=== PATIENT | male | born 1930 | race Caucasian/White ===

== ENCOUNTER 2017-08-10 18:13 | Emergency (ER) | payer MEDICARE, OTHER ==
[2017-08-10 18:21] VITALS: BP 197/100
--- NOTE | 2017-08-10 18:57 | EDM.PDOC ---
ED HPI GENERAL MEDICAL PROBLEM - General Chief Complaint: Skin Complaint Stated Complaint: LOWER LEG WOUND Time Seen by Provider: 08/10/17 18:30 Source of Information: Reports: Patient History Limitations: Reports: No Limitations - History of Present Illness INITIAL COMMENTS - FREE TEXT/NARRATIVE: 87 YO WM presents to ER with right lower extremity cellulitis x 3 days. Pt reports his pant leg was rubbing on his lower extremity causing a break in the skin and over the last few days he's noticed surrounding redness. Pt with bilateral lower extremity swelling that is chronic which he takes "water pill". Pt denies any fever/chills, denies malaise, denies pain or nausea/vomiting. Onset Date: 08/07/17 Duration: Day(s): (3) Location: Reports: Lower Extremity, Right Quality: Reports: Ache Severity: Mild Improves with: Reports: None Worsens with: Reports: None Associated Symptoms: Reports: No Other Symptoms - Related Data Allergies Allergy/AdvReac Type Severity Reaction Status Date / Time No Known Drug Allergies Allergy Unknown none Verified 08/10/17 18:17 Home Meds: Home Meds ALPRAZolam [Alprazolam] 1 tab PO DAILY PRN 01/20/16 [History] Albuterol [Ventolin HFA] 1 - 2 inhalation INH Q6HR PRN 01/20/16 [History] Albuterol/Ipratropium [DuoNeb 3.0-0.5 MG/3 ML] 1 vial INH QID PRN 01/20/16 [ History] Arformoterol Tartrate [Brovana] 1 vial INH BID 01/20/16 [History] Aspirin [Halfprin] 1 tab PO DAILY 01/20/16 [History] Benazepril HCl [Lotensin] 1 tab PO DAILY 01/20/16 [History] Budesonide [Pulmicort] 0.5 mg NEB BIDRT 01/20/16 [History] Cyclobenzaprine [Flexeril] 1 tab PO TID PRN 01/20/16 [History] Fluticasone Propionate 1 spray MICHELE BID 01/20/16 [History] Furosemide 1 tab PO DAILY 01/20/16 [History] Gabapentin 2 cap PO TID 01/20/16 [History] Ibuprofen 1 tab PO Q4HR PRN 01/20/16 [History] Ibuprofen/Diphenhydramine Cit [Advil Pm Caplet] 1 tab PO BEDTIME 01/20/16 [ History] L.acidoph,Paracasei, B.lactis [Probiotic] 1 cap PO BID 01/20/16 [History] Omeprazole 1 - 2 tab PO DAILY 01/20/16 [History] Potassium Chloride 1 tab PO DAILY 01/20/16 [History] Primidone 2 tab PO BID 01/20/16 [History] Propranolol HCl [Propranolol HCl ER] 1 cap PO DAILY 01/20/16 [History] Saw [place] Fruit [Saw [place]] 2 cap PO DAILY 01/20/16 [History] Spironolactone [Aldactone] 25 mg PO BID 01/20/16 [History] Tamsulosin [Flomax] 1 cap PO DAILY 01/20/16 [History] Tiotropium [Spiriva HandiHaler] 18 mcg INH DAILY 01/20/16 [History] Vitamin A Palmitate [Vitamin A] 1 cap PO DAILY 01/20/16 [History] Nitroglycerin [Nitrostat] 0.4 mg SL ASDIRECTED PRN #30 tab.subl 01/21/16 [Rx] Nystatin [IJD: Nystatin Cream] 1 applic TOP TID #1 tube 01/21/16 [Rx] Cephalexin [Keflex] 500 mg PO Q6HR #40 capsule 08/10/17 [Rx] Sulfamethoxazole/Trimethoprim [Septra DS] 1 each PO BID #20 tab 08/10/17 [Rx] Past Medical History HEENT History: Reports: Hard of Hearing, Impaired Vision Cardiovascular History: Reports: High Cholesterol, Hypertension, SOB on Exertion Respiratory History: Reports: COPD, SOB Gastrointestinal History: Reports: Cholelithiasis Genitourinary History: Reports: Prostate Disorder, Urinary Incontinence Musculoskeletal History: Reports: Arthritis Hematologic History: Reports: Blood Transfusion(s) - Infectious Disease History Infectious Disease History: Reports: Measles - Past Surgical History Respiratory Surgical History: Reports: None GI Surgical History: Reports: Appendectomy, Cholecystectomy Social & Family History - Family History Family Medical History: Noncontributory - Tobacco Use Smoking Status *Q: Unknown Ever Smoked - Caffeine Use Caffeine Use: Reports: Coffee, Soda - Alcohol Use Days Per Week of Alcohol Use: 1 Number of Drinks Per Day: 1 Total Drinks Per Week: 1 - Recreational Drug Use Recreational Drug Use: No ED ROS GENERAL - Review of Systems Review Of Systems: See Below Constitutional: Reports: No Symptoms HEENT: Reports: No Symptoms Respiratory: Reports: No Symptoms Cardiovascular: Reports: No Symptoms Endocrine: Reports: No Symptoms. Denies: High Glucose GI/Abdominal: Reports: No Symptoms : Reports: No Symptoms Musculoskeletal: Reports: No Symptoms Skin: Reports: Erythema, Wound (right anterior tibia ) Neurological: Reports: No Symptoms Psychiatric: Reports: No Symptoms Hematologic/Lymphatic: Reports: No Symptoms Immunologic: Reports: No Symptoms ED EXAM, SKIN/RASH Exam: See Below Exam Limited By: No Limitations General Appearance: Alert, WD/WN, No Apparent Distress Head: Atraumatic, Normocephalic Neck: Normal Inspection, Supple, Non-Tender, Full Range of Motion Respiratory/Chest: No Respiratory Distress, Lungs Clear, Normal Breath Sounds, No Accessory Muscle Use, Chest Non-Tender Cardiovascular: Normal Peripheral Pulses, Regular Rate, Rhythm, No Edema, No Gallop, No JVD, No Murmur, No Rub GI/Abdominal: Normal Bowel Sounds, Soft, Non-Tender, No Organomegaly, No Distention, No Abnormal Bruit, No Mass Back Exam: Normal Inspection, Full Range of Motion, NT Extremities: Pedal Edema, Increased Warmth, Redness (8x9cm area of erythema on anterior tibia) Neurological: Alert, Oriented, CN II-XII Intact, Normal Cognition, Normal Gait, Normal Reflexes, No Motor/Sensory Deficits Course - Vital Signs Last Recorded V/S: Last Vital Signs Temp 36.1 C 08/10/17 18:20 Pulse 69 08/10/17 18:20 Resp 22 H 08/10/17 18:20 BP 197/100 H 08/10/17 18:20 Pulse Ox 91 L 08/10/17 18:20 Departure - Departure Time of Disposition: 19:01 Disposition: Home, Self-Care 01 Clinical Impression: Cellulitis Qualifiers: Site of cellulitis of extremity: lower extremity Laterality: right - Discharge Information Prescriptions: Cephalexin [Keflex] 500 mg PO Q6HR #40 capsule Sulfamethoxazole/Trimethoprim [Septra DS] 1 each PO BID #20 tab Instructions: Cellulitis, Adult Referrals: Ronny Garcia NP [Primary Care Provider] - Additional Instructions: 1. discharge home 2. septra/keflex for cellulitis x 10 days 3. recheck wound in 2 days in clinic 4. return to ER for worsening symptoms - Assessment/Plan Assessment:: 1. early right lower extremity cellulitis Plan: 1. discharge home 2. septra/keflex for cellulitis x 10 days 3. recheck wound in 2 days in clinic 4. return to ER for worsening symptoms
[2017-08-10] MEDS ORDERED: Cephalexin 250 MG Cap ONE (19:14)
[2017-08-10] MEDS: Sulfamethoxazole/Trimethoprim 800-160 MG Tab PO SCH ×2 (19:24→19:37)
[2017-08-10] MEDS ORDERED: Cephalexin 250 MG Cap PO SCH (23:00)
== END 2017-08-10 19:30 | disposition home or self-care (01) ==
LOC: KA.ED 18:13
DX: L03.115 Cellulitis of right lower limb (principal); E78.00 Pure hypercholesterolemia, unspecified; I10 Essential (primary) hypertension; J44.9 Chronic obstructive pulmonary disease, unspecified; Z79.82 Long term (current) use of aspirin; Z79.899 Other long term (current) drug therapy
CPT/HCPCS: 99283; 99284; A9270

== ENCOUNTER 2017-10-17 16:50 | Inpatient (IN) | payer MEDICARE, OTHER ==
[2017-10-17] MEDS ORDERED: Acetaminophen 325 MG Tab PO PRN (17:10)
[2017-10-17] MEDS ORDERED: Cyclobenzaprine 5 MG Tab PO PRN (17:20)
[2017-10-17] MEDS ORDERED: Albuterol 8 GM Inhaler INH PRN (17:20)
[2017-10-17] MEDS ORDERED: Albuterol/Ipratropium 3.0-0.5 MG/3 ML Neb Soln INH PRN (17:20)
[2017-10-17] MEDS ORDERED: ALPRAZolam 0.25 MG Tab PO PRN (17:51)
[2017-10-17] MEDS ORDERED: Sodium Chloride 0.9% 250 ML ONE (17:51)
[2017-10-17] MEDS ORDERED: Ibuprofen 200 MG Tab PO PRN (17:52)
[2017-10-17] MEDS: Furosemide 40 MG/4 ML VIAL IVPUSH SCH (18:07)
[2017-10-17] MEDS: Metoclopramide 10 MG/2 ML SDV IVPUSH SCH ×2 (18:09→23:21)
[2017-10-17] MEDS: Ciprofloxacin in D5W 400 MG in Premix Bag 1 BAG IV SCH ×2 (18:12)
[2017-10-17] MEDS: Polyethylene Glycol 3350 Powder 17 GM Packet PO SCH (18:27)
[2017-10-17] MEDS ORDERED: Ibuprofen 200 MG Tab PO SCH (21:00)
[2017-10-17] MEDS: Arformoterol 15 MCG/2 ML Neb Soln INH SCH (21:03)
[2017-10-17] MEDS: B.Bifidum/B.Longum/L.Acidophilus/L.Rhamnosus (Probiotic) Cap PO SCH (21:10)
[2017-10-17] MEDS: Gabapentin 100 MG Cap PO SCH (21:10)
[2017-10-17] MEDS: Spironolactone 25 MG Tab PO SCH (21:11)
[2017-10-17] MEDS: Primidone 50 MG Tab PO SCH (21:11)
[2017-10-17] MEDS: Fluticasone Propionate Nasal Spray 16 GM Bottle NAS SCH (21:14)
[2017-10-17] MEDS: Budesonide 0.5 MG/2 ML Neb Susp NEB SCH (21:16)
[2017-10-18] MEDS: Furosemide 40 MG/4 ML VIAL IVPUSH SCH ×2 (01:57→16:03)
[2017-10-18] MEDS: Metoclopramide 10 MG/2 ML SDV IVPUSH SCH ×3 (05:45→17:35)
[2017-10-18] MEDS ORDERED: Furosemide 40 MG/4 ML VIAL IVPUSH SCH (06:00)
[2017-10-18] MEDS: Ciprofloxacin in D5W 400 MG in Premix Bag 1 BAG IV SCH ×4 (06:08→17:40)
[2017-10-18] MEDS: Omeprazole 20 MG Cap.CR PO SCH (06:09)
[2017-10-18] MEDS ORDERED: Magnesium Hydroxide 400 MG/5 ML Susp 30 ML Cup PO ONE (07:00)
[2017-10-18] MEDS: Arformoterol 15 MCG/2 ML Neb Soln INH SCH ×2 (07:15→21:10)
[2017-10-18] MEDS: Budesonide 0.5 MG/2 ML Neb Susp NEB SCH ×2 (07:49→21:25)
[2017-10-18] MEDS ORDERED: EPINEPHrine 1:10,000 1 MG/10 ML Syringe IVPUSH PRN (08:30)
[2017-10-18] MEDS ORDERED: Nitroglycerin 0.4 MG Tab.SL SL PRN (08:30)
[2017-10-18] MEDS ORDERED: Lidocaine 2% 100 MG/5 ML Syringe IVPUSH PRN (08:30)
[2017-10-18] MEDS ORDERED: Atropine 0.1 MG/ML 10 ML Syringe IVPUSH PRN (08:30)
[2017-10-18] MEDS ORDERED: Tiotropium Inhaler 18 MCG Inhalation Powder Cap Kit of 5 INH SCH (09:00)
[2017-10-18] MEDS ORDERED: Potassium Chloride 10 MEQ Tab.ER PO SCH (09:00)
[2017-10-18] MEDS ORDERED: VITAMIN A PALMITATE PO SCH (09:00)
[2017-10-18] MEDS ORDERED: SAW PALMETTO FRUIT PO SCH (09:00)
[2017-10-18] MEDS: Spironolactone 25 MG Tab PO SCH ×2 (10:17→21:13)
[2017-10-18] MEDS: Benazepril 10 MG Tab PO SCH (10:17)
[2017-10-18] MEDS: Tamsulosin 0.4 MG Cap.ER PO SCH (10:17)
[2017-10-18] MEDS: Gabapentin 100 MG Cap PO SCH ×3 (10:19→21:12)
[2017-10-18] MEDS: Propranolol 80 MG Cap.ER PO SCH (10:19)
[2017-10-18] MEDS: B.Bifidum/B.Longum/L.Acidophilus/L.Rhamnosus (Probiotic) Cap PO SCH ×2 (10:19→21:12)
[2017-10-18] MEDS: Polyethylene Glycol 3350 Powder 17 GM Packet PO SCH (10:20)
[2017-10-18] MEDS: Aspirin 81 MG Tab.EC PO SCH (10:20)
[2017-10-18] MEDS: Fluticasone Propionate Nasal Spray 16 GM Bottle NAS SCH ×2 (10:24→21:14)
--- NOTE | 2017-10-18 11:14 | PCM.PN ---
- General Info Date of Service: 10/18/17 Functional Status: Reports: Pain Controlled, Tolerating Diet, Ambulating, Urinating (Indwelling Macdonald catheter), Incentive Spirometry (IS about 800). Denies: New Symptoms - Review of Systems General: Reports: Night Sweats HEENT: Reports: No Symptoms Pulmonary: Reports: Shortness of Breath. Denies: Pleuritic Chest Pain, Sputum, Wheezing Cardiovascular: Reports: Dyspnea on Exertion, Edema. Denies: Chest Pain, Palpitations, Orthopnea Gastrointestinal: Reports: Constipation. Denies: Diarrhea, Nausea, Vomiting Genitourinary: Reports: Frequency, Incontinence. Denies: Dysuria, Hematuria Musculoskeletal: Denies: Back Pain Neurological: Reports: Tremors. Denies: Confusion Psychiatric: Reports: No Symptoms - Patient Data Vitals - Most Recent: Last Vital Signs Temp 98.3 F 10/18/17 06:55 Pulse 80 10/18/17 10:19 Resp 22 H 10/18/17 06:55 BP 105/66 10/18/17 10:19 Pulse Ox 95 10/18/17 08:10 Weight - Most Recent: 241 lb 6 oz I&O - Last 24 Hours: Intake & Output 10/17/17 10/18/17 10/18/17 22:59 06:59 14:59 Intake Total 395 150 Output Total 800 500 Balance -405 -350 Lab Results Last 24 Hours: Laboratory Results - last 24 hr 10/17/17 10/18/17 10/18/17 Range/Units 17:45 07:35 07:35 WBC 8.1 (5.0-10.0) 10^3/uL RBC 3.61 L (4.50-6.00) 10^6/uL Hgb 11.7 L (13.0-17.0) g/dL Hct 37.0 L (40.0-52.0) % MCV 102.5 H D (82.0-92.0) fL MCH 32.4 H (27.0-31.0) pg MCHC 31.6 L (32.0-36.0) g/dL RDW 12.3 (11.5-14.5) % Plt Count 168 (150-400) 10^3/uL MPV 9.9 (7.4-10.4) fL Immature Gran % (Auto) 0.4 (0.0-5.0) % Neut % (Auto) 66.2 (50.0-70.0) % Lymph % (Auto) 19.5 L (20.0-40.0) % Waldo % (Auto) 12.5 H (2.0-8.0) % Eos % (Auto) 1.0 (1.0-3.0) % Baso % (Auto) 0.4 (0.0-1.0) % Immature Gran # (Auto) 0.03 (0.00-0.50) 10^3/uL Neut # (Auto) 5.33 (2.50-7.00) 10^3/uL Lymph # (Auto) 1.57 (1.00-4.00) 10^3/uL Waldo # (Auto) 1.01 H (0.10-0.80) 10^3/uL Eos # (Auto) 0.08 L (0.10-0.30) 10^3/uL Baso # (Auto) 0.03 (0.00-0.10) 10^3/uL Lactic Acid 1.1 (0.4-2.0) mmol/L CK-MB (CK-2) 0.70 (0.00-4.30) ng/mL Mariano Results Last 24 Hours: Microbiology 10/17/17 18:00 Aerobic Blood Culture - Final Blood - Venous - Lab Draw Anaerobic Blood Culture - Final Med Orders - Current: Current Medications Acetaminophen (Tylenol) 650 mg PO Q4H PRN PRN Reason: analgesia/fever Last Admin: 10/18/17 02:46 Dose: 650 mg Albuterol (Ventolin Hfa) 0 gm INH Q6HR PRN PRN Reason: Wheezing Albuterol/Ipratropium (Duoneb 3.0-0.5 Mg/3 Ml) 3 ml INH QID PRN PRN Reason: Shortness of Breath Alprazolam (Xanax) 0.5 mg PO DAILY PRN PRN Reason: ANXIETY Arformoterol Tartrate (Brovana) 15 mcg INH BIDRT [facility] Last Admin: 10/18/17 07:15 Dose: 15 mcg Aspirin (Halfprin) 81 mg PO DAILY [facility] Last Admin: 10/18/17 10:20 Dose: 81 mg Atropine Sulfate (Atropine 0.1 Mg/Ml) 0 mg IVPUSH ASDIRECTED PRN PRN Reason: Heart Benazepril HCl (Lotensin) 40 mg PO DAILY [facility] Last Admin: 10/18/17 10:17 Dose: 40 mg Budesonide (Pulmicort) 0.5 mg NEB BIDRT [facility] Last Admin: 10/18/17 07:49 Dose: 0.5 mg Cyclobenzaprine HCl (Flexeril) 5 mg PO TID PRN PRN Reason: Muscle Spasm Diphenhydramine HCl (Benadryl) 25 mg PO BEDTIME [facility] Epinephrine HCl (Epinephrine 1:10,000) 1 mg IVPUSH ASDIRECTED PRN PRN Reason: Heart Fluticasone Propionate (Flonase) 0 gm MICHELE BID [facility] Last Admin: 10/18/17 10:24 Dose: 1 spray Furosemide (Lasix) 40 mg IVPUSH BID@0600,1800 [facility] Last Admin: 10/18/17 05:53 Dose: 40 mg Gabapentin (Neurontin) 200 mg PO TID [facility] Last Admin: 10/18/17 10:19 Dose: 200 mg Ciprofloxacin/Dextrose 400 mg/ (Premix) 200 mls @ 200 mls/hr IV Q12H [facility] Last Admin: 10/18/17 06:08 Dose: 200 mls/hr Ibuprofen (Motrin) 200 mg PO Q4HR PRN PRN Reason: PAIN Ibuprofen (Motrin) 200 mg PO BEDTIME [facility] Last Admin: 10/18/17 10:25 Dose: Not Given Lactobacillus Acidophilus/Rhamnosus (Multi-[place] Plus) 1 cap PO BID [facility] Last Admin: 10/18/17 10:19 Dose: 1 cap Lidocaine HCl (Xylocaine 2%) 0 mg IVPUSH ASDIRECTED PRN PRN Reason: Heart Metoclopramide HCl (Reglan) 10 mg IVPUSH Q6H [facility] Last Admin: 10/18/17 05:45 Dose: 10 mg Nitroglycerin (Nitrostat) 0.4 mg SL ASDIRECTED PRN PRN Reason: Heart Omeprazole (Omeprazole) 20 mg PO DAILY@0700 [facility] Last Admin: 10/18/17 06:09 Dose: 20 mg Polyethylene Glycol (Miralax) 17 gm PO DAILY [facility] Last Admin: 10/18/17 10:20 Dose: 17 gm Potassium Chloride (Klor-Con 10) 10 meq PO DAILY [facility] Primidone (Mysoline) 100 mg PO BID [facility] Last Admin: 10/17/17 21:11 Dose: 100 mg Propranolol HCl (Inderal La) 80 mg PO DAILY [facility] Last Admin: 10/18/17 10:19 Dose: 80 mg Spironolactone (Aldactone) 25 mg PO BID [facility] Last Admin: 10/18/17 10:17 Dose: 25 mg Tamsulosin HCl (Flomax) 0.4 mg PO DAILY [facility] Last Admin: 10/18/17 10:17 Dose: 0.4 mg Tiotropium [place] (Spiriva Handihaler) 18 mcg INH DAILY [facility] Discontinued Medications Furosemide (Lasix) 40 mg IVPUSH BID [facility] Last Admin: 10/18/17 01:57 Dose: Not Given Sodium Chloride (Normal Saline) Confirm Administered Dose 250 mls @ as directed .ROUTE .STK-MED ONE Stop: 10/17/17 17:52 Last Admin: 10/17/17 18:28 Dose: 50 mls/hr Magnesium Hydroxide (Milk Of Magnesia) 30 ml PO ONETIME ONE Stop: 10/18/17 07:01 Last Admin: 10/18/17 06:33 Dose: 30 ml - Exam Quality Assessment: Supplemental Oxygen General: Alert, Oriented, Cooperative HEENT: Pupils Equal Neck: No JVD Lungs: Crackles (Minimal crackles right lung base) Cardiovascular: Regular Rate, Irregular Rhythm. No: Bradycardia GI/Abdominal Exam: Normal Bowel Sounds, Soft. No: Distended (Male) Exam: Deferred Back Exam: No: CVA Tenderness (L), CVA Tenderness (R) Extremities: Pedal Edema (2+ pedal edema RLE, 1+ LLE) Neurological: Normal Gait Psy/Mental Status: Alert, Normal Affect, Normal Mood - Problem List Review Problem List Initiated/Reviewed/Updated: Yes - My Orders Last 24 Hours: My Active Orders 10/18/17 07:35 ESR [SEDIMENTATION RATE MANUAL] [HEME] Routine - Plan Plan:: History summary Chuck is a very pleasant 86-year-old gentleman that was admitted from the [facility] yesterday primarily due to worsening CHF, SOB on exertion, Lower extremity edema, diaphoresis, along with UTI. He did have other complaints regarding constipation bilateral knee pain in which he was due for bilateral injections of Supartz. He denied any cough or documented fever however did have diaphoresis. 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 Patient does have heart failure which echocardiogram September 2016 EF 70%, grade 1 diastolic dysfunction, mildly dilated left atrium with mild PAH. Reviewing [facility] chart he is not taking on Spiriva or potassium supplementation--however he is on acei and Aldactone Pertinent clinical workup/findings prior to admission Temperature 100.7, BP normal--weight not obtained at clinic POX 89% on home O2 BNP 1030 Troponin normal WBC 10.3 Creatinine 1.33 UA positive for UTI CXR; CHF findings, no infiltrates, report pending ABD x-ray, stool burden--report pending Pertinent admitting orders ABX for UTI, Urine culture Meds for constipation Macdonald, indwelling Diuretics Update since admission Significant BM today Lactic acid 1.1 BP low Afebrile Diuresing 9 pound weight loss, Primary hospital problems UTI, presumptive pyelonephritis HFpEF, Grade I diastolic with exacerbation Constipation Anemia, macrocytic, likely infection induced Monocytosis, favorable Chronic problems HTN HLD COPD/emphysema OA BPH Essential tremors, Obesity History of DVT, LMWH MDM, disposition. Continue acute care status remove from telemetry status after EKG. Continue IV Lasix, Renal dose IV Abx with monotherapy ciprofloxacin as likely good coverage for his gram-negative culture aerobic. daily weights, I/ O capture, add Low Na+ diet, DVT prophylaxis with LMWH. Although indwelling Macdonald catheter would be very useful to monitor his daily urine output for fluid management, with conconmittent UTI/pyelonephritis along with positive BC, will discontinued macdonald as risk likely supersedes therapeutic benefit. Continue home Resp medications, Monitor daily weights and use urinal and other clinical indicators to determine improvement in overall fluid status. Urine culture surveillance, DC diphenhydramine, replace with [place]. Monitor electrolytes.
[2017-10-18] MEDS: Enoxaparin 40 MG/0.4 ML Syringe SUBCUT SCH (12:24)
[2017-10-18] MEDS: Primidone 50 MG Tab PO SCH ×2 (12:24→21:13)
[2017-10-18] MEDS ORDERED: diphenhydrAMINE 25 MG Cap PO SCH (21:00)
[2017-10-19] MEDS: Metoclopramide 10 MG/2 ML SDV IVPUSH SCH ×2 (00:39→06:00)
[2017-10-19] MEDS: Omeprazole 20 MG Cap.CR PO SCH (06:00)
[2017-10-19] MEDS: Furosemide 40 MG/4 ML VIAL IVPUSH SCH ×2 (06:01→15:35)
[2017-10-19] MEDS: Ciprofloxacin in D5W 400 MG in Premix Bag 1 BAG IV SCH ×4 (06:22→18:45)
[2017-10-19] MEDS: Arformoterol 15 MCG/2 ML Neb Soln INH SCH ×2 (07:16→19:50)
[2017-10-19 08:24] LABS: ANION GAP 8.2 mmol/L (5-15); CHLORIDE,CL 102 mmol/L (98-115); SODIUM,NA 143 mmol/L (136-145)
[2017-10-19] MEDS: Budesonide 0.5 MG/2 ML Neb Susp NEB SCH ×2 (09:15→20:43)
[2017-10-19] MEDS: Tamsulosin 0.4 MG Cap.ER PO SCH (09:28)
[2017-10-19] MEDS: Fluticasone Propionate Nasal Spray 16 GM Bottle NAS SCH ×2 (09:28→20:48)
[2017-10-19] MEDS: Aspirin 81 MG Tab.EC PO SCH (09:28)
[2017-10-19] MEDS: Spironolactone 25 MG Tab PO SCH ×2 (09:28→20:47)
[2017-10-19] MEDS: Gabapentin 100 MG Cap PO SCH ×3 (09:28→20:47)
[2017-10-19] MEDS: B.Bifidum/B.Longum/L.Acidophilus/L.Rhamnosus (Probiotic) Cap PO SCH ×2 (09:28→20:47)
[2017-10-19] MEDS: Primidone 50 MG Tab PO SCH ×2 (09:29→20:47)
[2017-10-19] MEDS: Polyethylene Glycol 3350 Powder 17 GM Packet PO SCH (09:33)
[2017-10-19] MEDS: Propranolol 80 MG Cap.ER PO SCH (10:09)
[2017-10-19] MEDS: Benazepril 10 MG Tab PO SCH (10:09)
[2017-10-19] MEDS ORDERED: Sodium Chloride 0.9% 5 ML Syringe FLUSH PRN (10:16)
[2017-10-19] MEDS: Enoxaparin 40 MG/0.4 ML Syringe SUBCUT SCH (10:30)
--- NOTE | 2017-10-19 11:41 | PCM.PN ---
- General Info Date of Service: 10/19/17 Functional Status: Reports: Pain Controlled, Tolerating Diet, Urinating, Incentive Spirometry, Other (Feeling somewhat better, still some mild ongoing constipation, Alfonso catheter removed, voiding spontaneously, no, chills, or night sweats, no fever). Denies: New Symptoms - Review of Systems General: Reports: Appetite. Denies: Fever, Fatigue, Chills, Night Sweats HEENT: Reports: No Symptoms Pulmonary: Denies: Shortness of Breath, Cough, Sputum Cardiovascular: Reports: Edema. Denies: Chest Pain Gastrointestinal: Reports: Constipation Genitourinary: Reports: Incontinence (Slight incontinent and dribbling) Musculoskeletal: Reports: No Symptoms Skin: Reports: No Symptoms Neurological: Reports: No Symptoms Psychiatric: Reports: No Symptoms - Patient Data Vitals - Most Recent: Last Vital Signs Temp 99.0 F 10/19/17 06:19 Pulse 74 10/19/17 10:09 Resp 20 10/19/17 06:19 BP 89/57 L 10/19/17 10:09 Pulse Ox 95 10/19/17 09:15 Weight - Most Recent: 242 lb I&O - Last 24 Hours: Intake & Output 10/18/17 10/19/17 10/19/17 22:59 06:59 14:59 Intake Total 825 450 Output Total 400 300 Balance 425 150 Lab Results Last 24 Hours: Laboratory Results - last 24 hr 10/19/17 10/19/17 Range/Units 07:20 07:20 WBC 7.4 (5.0-10.0) 10^3/uL RBC 3.87 L (4.50-6.00) 10^6/uL Hgb 12.4 L (13.0-17.0) g/dL Hct 39.4 L (40.0-52.0) % MCV 101.8 H (82.0-92.0) fL MCH 32.0 H (27.0-31.0) pg MCHC 31.5 L (32.0-36.0) g/dL RDW 12.1 (11.5-14.5) % Plt Count 199 (150-400) 10^3/uL MPV 9.9 (7.4-10.4) fL Immature Gran % (Auto) 0.5 (0.0-5.0) % Neut % (Auto) 62.9 (50.0-70.0) % Lymph % (Auto) 23.4 (20.0-40.0) % [place] % (Auto) 9.5 H (2.0-8.0) % Eos % (Auto) 3.3 H (1.0-3.0) % Baso % (Auto) 0.4 (0.0-1.0) % Immature Gran # (Auto) 0.04 (0.00-0.50) 10^3/uL Neut # (Auto) 4.62 (2.50-7.00) 10^3/uL Lymph # (Auto) 1.72 (1.00-4.00) 10^3/uL [place] # (Auto) 0.70 (0.10-0.80) 10^3/uL Eos # (Auto) 0.24 (0.10-0.30) 10^3/uL Baso # (Auto) 0.03 (0.00-0.10) 10^3/uL Sodium 143 (136-145) mmol/L Potassium 4.4 (3.3-5.3) mmol/L Chloride 102 (98-115) mmol/L Carbon Dioxide 37.2 H (21.0-32.0) mmol/L Anion Gap 8.2 (5-15) mmol/L BUN 31 H (6-25) mg/dL Creatinine 1.14 (0.51-1.17) mg/dL Est Cr Clr Drug Dosing 53.08 mL/min Estimated GFR (MDRD) > 60 mL/min Glucose 145 mg/dL Calcium 8.6 L (8.7-10.3) mg/dL Total Bilirubin 0.2 (0.2-1.0) mg/dL AST 15 (15-37) U/L ALT 23 (12-78) U/L Alkaline Phosphatase 39 L (46-116) IU/L Total Protein 6.6 (6.4-8.2) g/dL Albumin 2.44 L (3.00-4.80) g/dL Mariano Results Last 24 Hours: Microbiology 10/17/17 17:45 Aerobic Blood Culture - Preliminary Blood - Venous NO GROWTH AFTER 1 DAY Anaerobic Blood Culture - Preliminary NO GROWTH AFTER 1 DAY 10/17/17 18:00 Aerobic Blood Culture - Final Blood - Venous - Lab Draw Anaerobic Blood Culture - Final Med Orders - Current: Current Medications Acetaminophen (Tylenol) 650 mg PO Q4H PRN PRN Reason: analgesia/fever Last Admin: 10/18/17 02:46 Dose: 650 mg Albuterol (Ventolin Hfa) 0 gm INH Q6HR PRN PRN Reason: Wheezing Albuterol/Ipratropium (Duoneb 3.0-0.5 Mg/3 Ml) 3 ml INH QID PRN PRN Reason: Shortness of Breath Alprazolam (Xanax) 0.5 mg PO DAILY PRN PRN Reason: ANXIETY Arformoterol Tartrate (Brovana) 15 mcg INH BIDRT [facility] Last Admin: 10/19/17 07:16 Dose: 15 mcg Aspirin (Halfprin) 81 mg PO DAILY [facility] Last Admin: 10/19/17 09:28 Dose: 81 mg Benazepril HCl (Lotensin) 40 mg PO DAILY [facility] Last Admin: 10/19/17 10:09 Dose: Not Given Budesonide (Pulmicort) 0.5 mg NEB BIDRT [facility] Last Admin: 10/19/17 09:15 Dose: 0.5 mg Cyclobenzaprine HCl (Flexeril) 5 mg PO TID PRN PRN Reason: Muscle Spasm Enoxaparin Sodium (Lovenox) 40 mg SUBCUT Q24H [facility] Last Admin: 10/19/17 10:30 Dose: 40 mg Fluticasone Propionate (Flonase) 0 gm MICHELE BID [facility] Last Admin: 10/19/17 09:28 Dose: 1 spray Furosemide (Lasix) 40 mg IVPUSH 0600,1600 [facility] Last Admin: 10/19/17 06:01 Dose: 40 mg Gabapentin (Neurontin) 200 mg PO TID [facility] Last Admin: 10/19/17 09:28 Dose: 200 mg Ciprofloxacin/Dextrose 400 mg/ (Premix) 200 mls @ 200 mls/hr IV Q12H [facility] Last Admin: 10/19/17 06:22 Dose: 200 mls/hr Sodium Chloride (Normal Saline) 100 mls @ 200 mls/hr IV DAILY@1800 [place] Ibuprofen (Motrin) 200 mg PO Q4HR PRN PRN Reason: PAIN Lactobacillus Acidophilus/Rhamnosus (Multi-[place] Plus) 1 cap PO BID [facility] Last Admin: 10/19/17 09:28 Dose: 1 cap Metoclopramide HCl (Reglan) 10 mg IVPUSH Q6H [facility] Last Admin: 10/19/17 06:00 Dose: 10 mg Omeprazole (Omeprazole) 20 mg PO DAILY@0700 [facility] Last Admin: 10/19/17 06:00 Dose: 20 mg Polyethylene Glycol (Miralax) 17 gm PO DAILY [facility] Last Admin: 10/19/17 09:33 Dose: 17 gm Primidone (Mysoline) 100 mg PO BID [facility] Last Admin: 10/19/17 09:29 Dose: 100 mg Propranolol HCl (Inderal La) 80 mg PO DAILY [facility] Last Admin: 10/19/17 10:09 Dose: Not Given Ramelteon (Rozerem) 8 mg PO DAILY@2000 [facility] Sodium Chloride (Syrex Flush) 5 ml FLUSH Q8HR PRN PRN Reason: Keep Vein Open Spironolactone (Aldactone) 25 mg PO BID [facility] Last Admin: 10/19/17 09:28 Dose: 25 mg Tamsulosin HCl (Flomax) 0.4 mg PO DAILY [facility] Last Admin: 10/19/17 09:28 Dose: 0.4 mg Discontinued Medications Atropine Sulfate (Atropine 0.1 Mg/Ml) 0 mg IVPUSH ASDIRECTED PRN PRN Reason: Heart Diphenhydramine HCl (Benadryl) 25 mg PO BEDTIME [facility] Epinephrine HCl (Epinephrine 1:10,000) 1 mg IVPUSH ASDIRECTED PRN PRN Reason: Heart Furosemide (Lasix) 40 mg IVPUSH BID [facility] Last Admin: 10/18/17 01:57 Dose: Not Given Furosemide (Lasix) 40 mg IVPUSH BID@0600,1800 [facility] Last Admin: 10/18/17 05:53 Dose: 40 mg Sodium Chloride (Normal Saline) Confirm Administered Dose 250 mls @ as directed .ROUTE .STK-MED ONE Stop: 10/17/17 17:52 Last Admin: 10/17/17 18:28 Dose: 50 mls/hr Ibuprofen (Motrin) 200 mg PO BEDTIME [facility] Last Admin: 10/18/17 10:25 Dose: Not Given Lidocaine HCl (Xylocaine 2%) 0 mg IVPUSH ASDIRECTED PRN PRN Reason: Heart Magnesium Hydroxide (Milk Of Magnesia) 30 ml PO ONETIME ONE Stop: 10/18/17 07:01 Last Admin: 10/18/17 06:33 Dose: 30 ml Nitroglycerin (Nitrostat) 0.4 mg SL ASDIRECTED PRN PRN Reason: Heart Potassium Chloride (Klor-Con 10) 10 meq PO DAILY [facility] Last Admin: 10/18/17 11:48 Dose: Not Given Ramelteon (Rozerem) 8 mg PO BEDTIME [facility] Last Admin: 10/18/17 21:14 Dose: 8 mg Tiotropium [place] (Spiriva Handihaler) 18 mcg INH DAILY [facility] Last Admin: 10/18/17 15:40 Dose: Not Given - Exam Quality Assessment: Supplemental Oxygen (Patient increases nighttime oxygen up to 4 L) General: Alert, Oriented Neck: No JVD Lungs: Normal Respiratory Effort. No: Crackles, Rales Cardiovascular: Regular Rate, Regular Rhythm GI/Abdominal Exam: Soft (Male) Exam: Deferred Back Exam: No: CVA Tenderness (L), CVA Tenderness (R) Extremities: Pedal Edema Neurological: No New Focal Deficit Psy/Mental Status: Alert, Normal Affect, Normal Mood - Problem List Review Problem List Initiated/Reviewed/Updated: Yes - My Orders Last 24 Hours: My Active Orders 10/18/17 11:29 Cardiac Monitoring Discontinue [RC] Click to Edit 10/18/17 11:30 Enoxaparin [Lovenox] 40 mg SUBCUT Q24H 10/18/17 Dinner Low Salt [Sodium Restricted Diet] [DIET] 10/19/17 10:16 Sodium Chloride 0.9% [Syrex Flush] 5 ml FLUSH Q8HR PRN 10/19/17 18:00 Sodium Chloride 0.9% [Normal Saline] 100 ml IV DAILY@1800 10/19/17 20:00 Ramelteon [Rozerem] 8 mg PO DAILY@1999 - Plan Plan:: History summary Chuck is a very pleasant 86-year-old gentleman that was admitted from the [facility] yesterday primarily due to worsening CHF, SOB on exertion, Lower extremity edema, diaphoresis, along with UTI. He did have other complaints regarding constipation bilateral knee pain in which he was due for bilateral injections of Supartz. He denied any cough or documented fever however did have diaphoresis. 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 Patient does have heart failure which echocardiogram September 2016 EF 70%, grade 1 diastolic dysfunction, mildly dilated left atrium with mild PAH. Reviewing Epic chart he is not taking on Spiriva or potassium supplementation--however he is on acei and Aldactone Pertinent clinical workup/findings prior to admission Temperature 100.7, BP normal--weight not obtained at clinic POX 89% on home O2 BNP 1030 Troponin normal WBC 10.3 Creatinine 1.33 UA positive for UTI CXR; CHF findings, no infiltrates, report pending ABD x-ray, stool burden--report pending Pertinent admitting orders ABX for UTI, Urine culture Meds for constipation Alfonso, indwelling Diuretics Update since admission Significant BM today Lactic acid 1.1 BP low Afebrile Diuresing 9 pound weight loss, Primary hospital problems UTI, presumptive pyelonephritis HFpEF, Grade I diastolic with exacerbation Constipation, improved however not optimal Anemia, macrocytic, likely infection induced Monocytosis, favorable Hypotension, holding parameters Chronic problems HTN HLD COPD/emphysema OA BPH Essential tremors, Obesity History of DVT, LMWH Full CODE STATUS MDM, disposition. Continue acute care status, Escherichia coli reported at clinic culture, gram-negative culture aerobic, Continue current monotherapy IV antibiotics, Discontinued Reglan, add magnesium citrate 150 mg by mouth 1. Add stool softener, daily weights, >1200 NEG output, I/O capture, Low Na+ diet, DVT prophylaxis with LMWH. Voiding spontaneously since catheter out. Continue diuresing today, monitor electrolytes, Change Ramelaton to 2000. Discussed daily weights at home, discussed proper oxygen use at home, DC diphenhydramine from home/discharge medications. Discussion with patient and family this morning and guarding positive blood culture (ONE SET), still some risk for sepsis although patient responding clinically will need ongoing inpatient stay approximate 48 more hours.
[2017-10-19] MEDS ORDERED: Magnesium Citrate Solution 296 ML Bottle PO ONE (11:45)
[2017-10-19] MEDS: Docusate Sodium 100 MG Cap PO SCH ×2 (12:05→20:47)
[2017-10-19] MEDS: Sodium Chloride 0.9% 100 ML IV SCH (18:48)
[2017-10-20] MEDS: Omeprazole 20 MG Cap.CR PO SCH (06:12)
[2017-10-20] MEDS: Furosemide 40 MG/4 ML VIAL IVPUSH SCH ×2 (06:13→16:46)
[2017-10-20] MEDS: Ciprofloxacin in D5W 400 MG in Premix Bag 1 BAG IV SCH ×4 (06:17→17:14)
[2017-10-20] MEDS: Arformoterol 15 MCG/2 ML Neb Soln INH SCH ×2 (08:03→19:55)
[2017-10-20] MEDS: Budesonide 0.5 MG/2 ML Neb Susp NEB SCH ×2 (08:14→19:55)
[2017-10-20] MEDS: Propranolol 80 MG Cap.ER PO SCH (08:20)
[2017-10-20] MEDS: Tamsulosin 0.4 MG Cap.ER PO SCH (08:20)
[2017-10-20] MEDS: Primidone 50 MG Tab PO SCH ×2 (08:21→20:33)
[2017-10-20] MEDS: Gabapentin 100 MG Cap PO SCH ×3 (08:21→20:33)
[2017-10-20] MEDS: Aspirin 81 MG Tab.EC PO SCH (08:21)
[2017-10-20] MEDS: Spironolactone 25 MG Tab PO SCH ×2 (08:21→20:31)
[2017-10-20] MEDS: B.Bifidum/B.Longum/L.Acidophilus/L.Rhamnosus (Probiotic) Cap PO SCH ×2 (08:21→20:33)
[2017-10-20] MEDS: Benazepril 10 MG Tab PO SCH (08:24)
[2017-10-20] MEDS: Polyethylene Glycol 3350 Powder 17 GM Packet PO SCH (08:25)
[2017-10-20] MEDS: Docusate Sodium 100 MG Cap PO SCH ×2 (08:25→20:32)
[2017-10-20] MEDS: Fluticasone Propionate Nasal Spray 16 GM Bottle NAS SCH ×2 (08:25→20:32)
[2017-10-20 08:31] LABS: ANION GAP 4.1 mmol/L (5-15); CHLORIDE,CL 99 mmol/L (98-115); SODIUM,NA 137 mmol/L (136-145)
--- NOTE | 2017-10-20 10:06 | PCM.PN ---
- General Info Date of Service: 10/20/17 Functional Status: Reports: Pain Controlled, Tolerating Diet, Ambulating, Urinating, Incentive Spirometry. Denies: New Symptoms - Review of Systems General: Reports: No Symptoms HEENT: Reports: No Symptoms Pulmonary: Reports: No Symptoms Cardiovascular: Reports: No Symptoms Gastrointestinal: Reports: Constipation Genitourinary: Reports: Incontinence (Slight incontinent) Musculoskeletal: Reports: No Symptoms Skin: Reports: Bruising Neurological: Reports: No Symptoms Psychiatric: Reports: No Symptoms - Patient Data Vitals - Most Recent: Last Vital Signs Temp 97.7 F 10/20/17 06:28 Pulse 77 10/20/17 08:20 Resp 20 10/20/17 06:28 BP 103/61 10/20/17 08:24 Pulse Ox 95 10/20/17 06:28 Weight - Most Recent: 241 lb I&O - Last 24 Hours: Intake & Output 10/19/17 10/20/17 10/20/17 22:59 06:59 14:59 Intake Total 600 450 Output Total 1400 1100 Balance -800 -650 Lab Results Last 24 Hours: Laboratory Results - last 24 hr 10/20/17 Range/Units 07:35 Sodium 137 (136-145) mmol/L Potassium 4.3 (3.3-5.3) mmol/L Chloride 99 (98-115) mmol/L Carbon Dioxide 38.2 H (21.0-32.0) mmol/L Anion Gap 4.1 L (5-15) mmol/L BUN 28 H (6-25) mg/dL Creatinine 0.92 (0.51-1.17) mg/dL Est Cr Clr Drug Dosing 65.77 mL/min Estimated GFR (MDRD) > 60 mL/min Glucose 143 mg/dL Calcium 8.7 (8.7-10.3) mg/dL B-Natriuretic Peptide 118 H (0-100) pg/mL Mariano Results Last 24 Hours: Microbiology 10/17/17 17:45 Aerobic Blood Culture - Preliminary Blood - Venous NO GROWTH AFTER 2 DAYS Anaerobic Blood Culture - Preliminary NO GROWTH AFTER 2 DAYS 10/17/17 18:00 Bacterial Identification - Preliminary Blood - Venous Gram Negative Rods Med Orders - Current: Current Medications Acetaminophen (Tylenol) 650 mg PO Q4H PRN PRN Reason: analgesia/fever Last Admin: 10/18/17 02:46 Dose: 650 mg Albuterol (Ventolin Hfa) 0 gm INH Q6HR PRN PRN Reason: Wheezing Albuterol/Ipratropium (Duoneb 3.0-0.5 Mg/3 Ml) 3 ml INH QID PRN PRN Reason: Shortness of Breath Alprazolam (Xanax) 0.5 mg PO DAILY PRN PRN Reason: ANXIETY Arformoterol Tartrate (Brovana) 15 mcg INH BIDRT [facility] Last Admin: 10/20/17 08:03 Dose: 15 mcg Aspirin (Halfprin) 81 mg PO DAILY [facility] Last Admin: 10/20/17 08:21 Dose: 81 mg Benazepril HCl (Lotensin) 40 mg PO DAILY [facility] Last Admin: 10/20/17 08:24 Dose: 40 mg Budesonide (Pulmicort) 0.5 mg NEB BIDRT [facility] Last Admin: 10/20/17 08:14 Dose: 0.5 mg Cyclobenzaprine HCl (Flexeril) 5 mg PO TID PRN PRN Reason: Muscle Spasm Docusate Sodium (Colace) 100 mg PO BID [facility] Last Admin: 10/20/17 08:25 Dose: 100 mg Enoxaparin Sodium (Lovenox) 40 mg SUBCUT Q24H [facility] Last Admin: 10/19/17 10:30 Dose: 40 mg Fluticasone Propionate (Flonase) 0 gm MICHELE BID [facility] Last Admin: 10/20/17 08:25 Dose: 1 spray Furosemide (Lasix) 40 mg IVPUSH 0600,1600 [facility] Last Admin: 10/20/17 06:13 Dose: 40 mg Gabapentin (Neurontin) 200 mg PO TID [facility] Last Admin: 10/20/17 08:21 Dose: 200 mg Ciprofloxacin/Dextrose 400 mg/ (Premix) 200 mls @ 200 mls/hr IV Q12H [facility] Last Admin: 10/20/17 06:17 Dose: 200 mls/hr Sodium Chloride (Normal Saline) 100 mls @ 200 mls/hr IV DAILY@1800 [facility] Last Admin: 10/19/17 18:48 Dose: 200 mls/hr Ibuprofen (Motrin) 200 mg PO Q4HR PRN PRN Reason: PAIN Lactobacillus Acidophilus/Rhamnosus (Multi-America Plus) 1 cap PO BID [facility] Last Admin: 08/25/18 08:21 Dose: 1 cap Omeprazole (Omeprazole) 20 mg PO DAILY@0700 [facility] Last Admin: 10/20/17 06:12 Dose: 20 mg Polyethylene Glycol (Miralax) 17 gm PO DAILY [facility] Last Admin: 10/20/17 08:25 Dose: 17 gm Primidone (Mysoline) 100 mg PO BID [facility] Last Admin: 10/20/17 08:21 Dose: 100 mg Propranolol HCl (Inderal La) 80 mg PO DAILY [facility] Last Admin: 10/20/17 08:20 Dose: 80 mg Ramelteon (Rozerem) 8 mg PO DAILY@2000 [facility] Last Admin: 10/19/17 19:51 Dose: 8 mg Sodium Chloride (Syrex Flush) 5 ml FLUSH Q8HR PRN PRN Reason: Keep Vein Open Spironolactone (Aldactone) 25 mg PO BID [facility] Last Admin: 10/20/17 08:21 Dose: 25 mg Tamsulosin HCl (Flomax) 0.4 mg PO DAILY [facility] Last Admin: 10/20/17 08:20 Dose: 0.4 mg Discontinued Medications Atropine Sulfate (Atropine 0.1 Mg/Ml) 0 mg IVPUSH ASDIRECTED PRN PRN Reason: Heart Diphenhydramine HCl (Benadryl) 25 mg PO BEDTIME [facility] Epinephrine HCl (Epinephrine 1:10,000) 1 mg IVPUSH ASDIRECTED PRN PRN Reason: Heart Furosemide (Lasix) 40 mg IVPUSH BID [facility] Last Admin: 10/18/17 01:57 Dose: Not Given Furosemide (Lasix) 40 mg IVPUSH BID@0600,1800 [facility] Last Admin: 10/18/17 05:53 Dose: 40 mg Sodium Chloride (Normal Saline) Confirm Administered Dose 250 mls @ as directed .ROUTE .STK-MED ONE Stop: 10/17/17 17:52 Last Admin: 10/17/17 18:28 Dose: 50 mls/hr Ibuprofen (Motrin) 200 mg PO BEDTIME [facility] Last Admin: 10/18/17 10:25 Dose: Not Given Lidocaine HCl (Xylocaine 2%) 0 mg IVPUSH ASDIRECTED PRN PRN Reason: Heart Magnesium Citrate (Citrate Of Magnesia) 150 ml PO ONETIME ONE Stop: 10/19/17 11:46 Last Admin: 10/19/17 12:04 Dose: 150 ml Magnesium Hydroxide (Milk Of Magnesia) 30 ml PO ONETIME ONE Stop: 10/18/17 07:01 Last Admin: 10/18/17 06:33 Dose: 30 ml Metoclopramide HCl (Reglan) 10 mg IVPUSH Q6H [facility] Last Admin: 10/19/17 06:00 Dose: 10 mg Nitroglycerin (Nitrostat) 0.4 mg SL ASDIRECTED PRN PRN Reason: Heart Potassium Chloride (Klor-Con 10) 10 meq PO DAILY [facility] Last Admin: 10/18/17 11:48 Dose: Not Given Ramelteon (Rozerem) 8 mg PO BEDTIME [facility] Last Admin: 10/18/17 21:14 Dose: 8 mg Tiotropium [place] (Spiriva Handihaler) 18 mcg INH DAILY [facility] Last Admin: 10/18/17 15:40 Dose: Not Given - Exam Quality Assessment: Supplemental Oxygen. No: Skin Breakdown General: Alert, Oriented Neck: No JVD Lungs: Normal Respiratory Effort. No: Crackles, Rales, Wheezing Cardiovascular: Regular Rate, Regular Rhythm GI/Abdominal Exam: Soft (Male) Exam: Deferred Back Exam: No: CVA Tenderness (L), CVA Tenderness (R) Extremities: Pedal Edema Peripheral Pulses: 2+: Radial (R) Neurological: No New Focal Deficit Psy/Mental Status: Alert, Normal Affect, Normal Mood - Problem List Review Problem List Initiated/Reviewed/Updated: Yes - My Orders Last 24 Hours: My Active Orders 10/19/17 10:16 Sodium Chloride 0.9% [Syrex Flush] 5 ml FLUSH Q8HR PRN 10/19/17 11:45 Docusate Sodium [Colace] 100 mg PO BID 10/19/17 12:53 Vital Signs [RC] 0700,1500,2300 10/19/17 18:00 Sodium Chloride 0.9% [Normal Saline] 100 ml IV DAILY@1800 10/19/17 20:00 Ramelteon [Rozerem] 8 mg PO DAILY@1999 - Plan Plan:: History summary Chuck is a very pleasant 86-year-old gentleman that was admitted from the [facility] yesterday primarily due to worsening CHF, SOB on exertion, Lower extremity edema, diaphoresis, along with UTI. He did have other complaints regarding constipation bilateral knee pain in which he was due for bilateral injections of Supartz. He denied any cough or documented fever however did have diaphoresis. 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 Patient does have heart failure which echocardiogram September 2016 EF 70%, grade 1 diastolic dysfunction, mildly dilated left atrium with mild PAH. Reviewing [facility] chart he is not taking on Spiriva or potassium supplementation--however he is on acei and Aldactone Pertinent clinical workup/findings prior to admission Temperature 100.7, BP normal--weight not obtained at clinic POX 89% on home O2 BNP 1030 Troponin normal WBC 10.3 Creatinine 1.33 UA positive for UTI CXR; CHF findings, no infiltrates, report pending ABD x-ray, stool burden--report pending Update since admission Significant BM on day 1 however highly constipated remains Significant reduction in BNP Afebrile Diuresing -2200 mL output balance 9 pound weight loss since admission Primary hospital problems UTI, presumptive pyelonephritis HFpEF, Grade I diastolic with exacerbation Constipation, improved however not optimal Anemia, macrocytic, likely infection induced Monocytosis, favorable Hypotension, holding parameters Chronic problems HTN HLD COPD/emphysema OA BPH Essential tremors, Obesity History of DVT, LMWH Full CODE STATUS MDM, disposition. Continue acute care status, Escherichia coli reported at clinic culture, gram-negative culture aerobic, Continue current monotherapy IV antibiotics, Discontinued Reglan, add Senna S and MOM today. daily weights, - 2200 mL output balance, I/O capture, Low Na+ diet, DVT prophylaxis with LMWH. Voiding spontaneously since catheter out. Continue diuresing today, monitor electrolytes, Discussed daily weights at home, discussed proper oxygen use at home, DC diphenhydramine from home/discharge medications. Anticipate possible discharge in a.m.
[2017-10-20] MEDS: Magnesium Hydroxide 400 MG/5 ML Susp 30 ML Cup PO SCH ×2 (10:32→20:32)
[2017-10-20] MEDS: Enoxaparin 40 MG/0.4 ML Syringe SUBCUT SCH (12:26)
[2017-10-20] MEDS: Sodium Chloride 0.9% 100 ML IV SCH (17:16)
[2017-10-21] MEDS: Ciprofloxacin in D5W 400 MG in Premix Bag 1 BAG IV SCH ×2 (05:50)
[2017-10-21] MEDS: Omeprazole 20 MG Cap.CR PO SCH (06:51)
[2017-10-21] MEDS: Furosemide 40 MG/4 ML VIAL IVPUSH SCH (06:51)
[2017-10-21] MEDS: Tamsulosin 0.4 MG Cap.ER PO SCH (09:26)
[2017-10-21] MEDS: Fluticasone Propionate Nasal Spray 16 GM Bottle NAS SCH (09:26)
[2017-10-21] MEDS: Arformoterol 15 MCG/2 ML Neb Soln INH SCH (09:26)
[2017-10-21] MEDS: Docusate Sodium 100 MG Cap PO SCH (09:26)
[2017-10-21] MEDS: Spironolactone 25 MG Tab PO SCH (09:26)
[2017-10-21] MEDS: Propranolol 80 MG Cap.ER PO SCH (09:27)
[2017-10-21] MEDS: Aspirin 81 MG Tab.EC PO SCH (09:27)
[2017-10-21] MEDS: B.Bifidum/B.Longum/L.Acidophilus/L.Rhamnosus (Probiotic) Cap PO SCH (09:27)
[2017-10-21] MEDS: Primidone 50 MG Tab PO SCH (09:27)
[2017-10-21] MEDS: Gabapentin 100 MG Cap PO SCH (09:28)
[2017-10-21] MEDS: Magnesium Hydroxide 400 MG/5 ML Susp 30 ML Cup PO SCH (09:31)
[2017-10-21] MEDS: Polyethylene Glycol 3350 Powder 17 GM Packet PO SCH (09:31)
[2017-10-21] MEDS: Benazepril 10 MG Tab PO SCH (09:32)
[2017-10-21] MEDS: Budesonide 0.5 MG/2 ML Neb Susp NEB SCH (09:57)
[2017-10-21 10:09] VITALS: BP 104/62
--- NOTE | 2017-10-21 11:28 | PCM.DCSUM1 ---
Discharge Summary - Hospital Course Diagnosis: Stroke: No - Discharge Data Discharge Date: 10/21/17 Discharge Disposition: Home, Self-Care 01 Condition: Good - Patient Instructions Diet: Usual Diet as Tolerated, Low Sodium (2,000 mg sodium per day restriction. No added salt to diet ) Diet, Other: Eat 2 whole prunes at breakfast time. Activity: As Tolerated, Cough & Deep Breathe Driving: May Drive Today Showering/Bathing: May Shower Notify Provider of: Fever, Swelling and Redness, Nausea and/or Vomiting Other/Special Instructions: Weigh yourself same time, same scale daily and report weight increase more than 3 pounds - Discharge Plan *PRESCRIPTION DRUG MONITORING PROGRAM REVIEWED*: Not Applicable *COPY OF PRESCRIPTION DRUG MONITORING REPORT IN PATIENT DORI: Not Applicable Prescriptions/Med Rec: Ciprofloxacin HCl [Cipro] 500 mg PO BID #8 tablet Docusate Sodium [Colace] 100 mg PO BID #60 cap Magnesium Hydroxide [Milk of Magnesia] 30 ml PO DAILY #420 ml Home Medications: Home Meds ALPRAZolam [Alprazolam] 0.5 mg PO DAILY PRN 01/20/16 [History] Albuterol [Ventolin HFA] 1 - 2 inhalation INH Q6HR PRN 01/20/16 [History] Albuterol/Ipratropium [DuoNeb 3.0-0.5 MG/3 ML] 1 vial INH QID PRN 01/20/16 [ History] Arformoterol Tartrate [Brovana] 2 ml INH BID 01/20/16 [History] Aspirin [Halfprin] 81 mg PO DAILY 01/20/16 [History] Benazepril HCl [Lotensin] 40 mg PO DAILY 01/20/16 [History] Budesonide [Pulmicort] 0.5 mg NEB BID 01/20/16 [History] Cyclobenzaprine [Flexeril] 5 mg PO TID PRN 01/20/16 [History] Fluticasone Propionate 1 spray MICHELE BID 01/20/16 [History] Gabapentin 200 mg PO TID 01/20/16 [History] Ibuprofen 200 mg PO Q4HR PRN 01/20/16 [History] Ibuprofen/Diphenhydramine Cit [Advil Pm Caplet] 1 tab PO BEDTIME 01/20/16 [ History] L.acidoph,Paracasei, B.lactis [Probiotic] 1 cap PO DAILY 01/20/16 [History] Omeprazole 20 - 40 mg PO ACBREAKFAST 01/20/16 [History] Primidone 100 mg PO BID 01/20/16 [History] Propranolol HCl [Propranolol HCl ER] 80 mg PO DAILY 01/20/16 [History] [place] Fruit [Saw [place]] 2 cap PO DAILY 01/20/16 [History] Spironolactone [Aldactone] 25 mg PO BID 01/20/16 [History] Tamsulosin [Flomax] 0.4 mg PO DAILY 01/20/16 [History] Vitamin A Palmitate [Vitamin A] 1 cap PO DAILY 01/20/16 [History] Furosemide 20 mg PO TID@0700,1200,1700 10/17/17 [History] Vitamin B Complex 1 tab PO DAILY 10/17/17 [History] Ciprofloxacin HCl [Cipro] 500 mg PO BID #8 tablet 10/21/17 [Rx] Docusate Sodium [Colace] 100 mg PO BID #60 cap 10/21/17 [Rx] Magnesium Hydroxide [Milk of Magnesia] 30 ml PO DAILY #420 ml 10/21/17 [Rx] Referrals: Damaris Mendiola, [employer] [Nurse Practitioner] - (Midweek this week, call clinic at [phone] for follow-up, or he can see Ronny) - Discharge Summary/Plan Comment DC Time >30 min.: Yes Discharge Summary/Plan Comment: Final primary diagnosis UTI, presumptive pyelonephritis HFpEF, Grade I diastolic with exacerbation Constipation, Anemia, macrocytic, likely infection induced Monocytosis, favorable Hypotension, holding parameters History summary Chuck is a very pleasant 86-year-old gentleman that was admitted from the [facility] yesterday primarily due to worsening CHF, SOB on exertion, Lower extremity edema, diaphoresis, along with UTI. He did have other complaints regarding constipation bilateral knee pain in which he was due for bilateral injections of Supartz. He denied any cough or documented fever however did have diaphoresis. 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 Patient does have heart failure which echocardiogram September 2016 EF 70%, grade 1 diastolic dysfunction, mildly dilated left atrium with mild PAH. Reviewing Epic chart he is not taking on Spiriva or potassium supplementation--however he is on acei and Aldactone Pertinent clinical workup/findings prior to admission Temperature 100.7, BP normal--weight not obtained at clinic POX 89% on home O2 BNP 1030 Troponin normal WBC 10.3 Creatinine 1.33 UA positive for UTI CXR; CHF findings, no infiltrates, report pending ABD x-ray, stool burden--report pending Hospital course Patient did well throughout his hospital stay he diuresed well. Did have low blood pressure concerning of sepsis however lactic acid was normal. He did have one anaerobic blood culture set returned with gram-negative rods definitive treatment for ciprofloxacin. His Alfonso catheter was removed and he was voiding spontaneously. Blood pressure medications were held, he received Lasix 40 mg IV twice a day. Did have significant constipation and required multiple medications regimens which did improve. He had approximately 10 pound weight loss during his hospital stay with approximately 4200 mL negative output. Escherichia coli reported at clinic culture, gram-negative culture aerobic. I discontinued his diphenhydramine ydrochloride from home placed him on [facility]. He was educated regarding avoiding any anti-cholinergic such as diphenhydramine at home for sleep. Place on low-sodium 2 g diet prior to discharge. He was provided DVT prophylaxis with LMWH. He was educated regarding not turning his oxygen levels up at night Medications adjustments/changes upon discharge Ciprofloxacin 500 mg by mouth twice a day as 4 days (newly added) Milk of magnesia, 30 mL by mouth daily 2 weeks Colace 100 mg by mouth twice a day Continue home Lasix Disposition/discharge instructions Discharge to home self-care, Low-sodium diet, whole prunes for breakfast Daily weights, report 3 pound weight gain He will follow-up in the clinic with Damaris Mendiola nurse practitioner or myself Recommendations at follow-up, may need Lasix adjustments according to weight, ongoing education regarding anti-cholinergic avoidance, assess constipation. Reinforce to patient not to turning oxygen levels up at night to sleep. - General Info Functional Status: Reports: Pain Controlled, Tolerating Diet, Urinating - Review of Systems General: Reports: Fever HEENT: Reports: No Symptoms Pulmonary: Reports: No Symptoms Cardiovascular: Denies: Dyspnea on Exertion, Edema Gastrointestinal: Denies: Abdominal Pain, Constipation, Diarrhea, Nausea Genitourinary: Reports: Incontinence Musculoskeletal: Reports: Other (Knee pains resolved however nonambulatory) Neurological: Reports: No Symptoms - Patient Data Vitals - Most Recent: Last Vital Signs Temp 97.9 F 10/21/17 06:56 Pulse 74 10/21/17 10:08 Resp 20 10/21/17 06:56 BP 104/62 10/21/17 10:08 Pulse Ox 98 10/21/17 09:58 Weight - Most Recent: 241 lb I&O - Last 24 hours: Intake & Output 10/20/17 10/21/17 10/21/17 22:59 06:59 14:59 Intake Total 732 400 Output Total 1400 1100 Balance -668 -700 ANANTH Results - Last 24 hrs: Microbiology 10/17/17 18:00 Bacterial Identification - Final Blood - Venous Escherichia Coli 10/17/17 17:45 Aerobic Blood Culture - Preliminary Blood - Venous NO GROWTH AFTER 3 DAYS Anaerobic Blood Culture - Preliminary NO GROWTH AFTER 3 DAYS Med Orders - Current: Current Medications Acetaminophen (Tylenol) 650 mg PO Q4H PRN PRN Reason: analgesia/fever Last Admin: 10/18/17 02:46 Dose: 650 mg Albuterol (Ventolin Hfa) 0 gm INH Q6HR PRN PRN Reason: Wheezing Albuterol/Ipratropium (Duoneb 3.0-0.5 Mg/3 Ml) 3 ml INH QID PRN PRN Reason: Shortness of Breath Alprazolam (Xanax) 0.5 mg PO DAILY PRN PRN Reason: ANXIETY Arformoterol Tartrate (Brovana) 15 mcg INH BIDRT [facility] Last Admin: 10/21/17 09:26 Dose: 15 mcg Aspirin (Halfprin) 81 mg PO DAILY [facility] Last Admin: 10/21/17 09:27 Dose: 81 mg Benazepril HCl (Lotensin) 40 mg PO DAILY [facility] Last Admin: 10/21/17 09:32 Dose: 40 mg Budesonide (Pulmicort) 0.5 mg NEB BIDRT [facility] Last Admin: 10/21/17 09:57 Dose: 0.5 mg Cyclobenzaprine HCl (Flexeril) 5 mg PO TID PRN PRN Reason: Muscle Spasm Docusate Sodium (Colace) 100 mg PO BID [facility] Last Admin: 10/21/17 09:26 Dose: 100 mg Enoxaparin Sodium (Lovenox) 40 mg SUBCUT Q24H [facility] Last Admin: 10/20/17 12:26 Dose: 40 mg Fluticasone Propionate (Flonase) 0 gm MICHELE BID [facility] Last Admin: 10/21/17 09:26 Dose: 1 spray Furosemide (Lasix) 40 mg IVPUSH 0600,1600 [facility] Last Admin: 10/21/17 06:51 Dose: 40 mg Gabapentin (Neurontin) 200 mg PO TID [facility] Last Admin: 10/21/17 09:28 Dose: 200 mg Ciprofloxacin/Dextrose 400 mg/ (Premix) 200 mls @ 200 mls/hr IV Q12H [facility] Last Admin: 10/21/17 05:50 Dose: 200 mls/hr Sodium Chloride (Normal Saline) 100 mls @ 200 mls/hr IV DAILY@1800 [facility] Last Admin: 10/20/17 17:16 Dose: 200 mls/hr Ibuprofen (Motrin) 200 mg PO Q4HR PRN PRN Reason: PAIN Lactobacillus Acidophilus/Rhamnosus (Multi-[place] Plus) 1 cap PO BID [facility] Last Admin: 10/21/17 09:27 Dose: 1 cap Magnesium Hydroxide (Milk Of Magnesia) 30 ml PO BID [facility] Last Admin: 10/21/17 09:31 Dose: 30 ml Omeprazole (Omeprazole) 20 mg PO DAILY@0700 [facility] Last Admin: 10/21/17 06:51 Dose: 20 mg Polyethylene Glycol (Miralax) 17 gm PO DAILY [facility] Last Admin: 10/21/17 09:31 Dose: 17 gm Primidone (Mysoline) 100 mg PO BID [facility] Last Admin: 10/21/17 09:27 Dose: 100 mg Propranolol HCl (Inderal La) 80 mg PO DAILY [facility] Last Admin: 10/21/17 09:27 Dose: 80 mg Ramelteon (Rozerem) 8 mg PO DAILY@2000 [facility] Last Admin: 10/20/17 19:55 Dose: 8 mg Senna/Docusate Sodium (Senna Plus) 1 tab PO BID [facility] Last Admin: 10/21/17 09:31 Dose: 1 tab Sodium Chloride (Syrex Flush) 5 ml FLUSH Q8HR PRN PRN Reason: Keep Vein Open Spironolactone (Aldactone) 25 mg PO BID [facility] Last Admin: 10/21/17 09:26 Dose: 25 mg Tamsulosin HCl (Flomax) 0.4 mg PO DAILY [facility] Last Admin: 10/21/17 09:26 Dose: 0.4 mg Discontinued Medications Atropine Sulfate (Atropine 0.1 Mg/Ml) 0 mg IVPUSH ASDIRECTED PRN PRN Reason: Heart Diphenhydramine HCl (Benadryl) 25 mg PO BEDTIME [facility] Epinephrine HCl (Epinephrine 1:10,000) 1 mg IVPUSH ASDIRECTED PRN PRN Reason: Heart Furosemide (Lasix) 40 mg IVPUSH BID [facility] Last Admin: 10/18/17 01:57 Dose: Not Given Furosemide (Lasix) 40 mg IVPUSH BID@0600,1800 [facility] Last Admin: 10/18/17 05:53 Dose: 40 mg Sodium Chloride (Normal Saline) Confirm Administered Dose 250 mls @ as directed .ROUTE .STK-MED ONE Stop: 10/17/17 17:52 Last Admin: 10/17/17 18:28 Dose: 50 mls/hr Ibuprofen (Motrin) 200 mg PO BEDTIME [facility] Last Admin: 10/18/17 10:25 Dose: Not Given Lidocaine HCl (Xylocaine 2%) 0 mg IVPUSH ASDIRECTED PRN PRN Reason: Heart Magnesium Citrate (Citrate Of Magnesia) 150 ml PO ONETIME ONE Stop: 10/19/17 11:46 Last Admin: 10/19/17 12:04 Dose: 150 ml Magnesium Hydroxide (Milk Of Magnesia) 30 ml PO ONETIME ONE Stop: 10/18/17 07:01 Last Admin: 10/18/17 06:33 Dose: 30 ml Metoclopramide HCl (Reglan) 10 mg IVPUSH Q6H [facility] Last Admin: 10/19/17 06:00 Dose: 10 mg Nitroglycerin (Nitrostat) 0.4 mg SL ASDIRECTED PRN PRN Reason: Heart Potassium Chloride (Klor-Con 10) 10 meq PO DAILY [facility] Last Admin: 10/18/17 11:48 Dose: Not Given Ramelteon (Rozerem) 8 mg PO BEDTIME [facility] Last Admin: 10/18/17 21:14 Dose: 8 mg Tiotropium [place] (Spiriva Handihaler) 18 mcg INH DAILY [facility] Last Admin: 10/18/17 15:40 Dose: Not Given - Exam Quality Assessment: Reports: Supplemental Oxygen General: Reports: Alert, Oriented Neck: Reports: Supple, No JVD Lungs: Reports: Clear to Auscultation, Normal Respiratory Effort GI/Abdominal Exam: No Distention Extremities: Other (Mild edema lower extremities) Neurological: Reports: No New Focal Deficit Psy/Mental Status: Reports: Alert, Normal Affect, Normal Mood
[2017-10-21] MEDS: Enoxaparin 40 MG/0.4 ML Syringe SUBCUT SCH (12:15)
[2017-10-21] MEDS ORDERED: Ciprofloxacin 500 MG Tab PO ONE (13:00)
== END 2017-10-21 14:30 | disposition home or self-care (01) | DRG 291 ==
LOC: KA.MS 16:50 → UNDOADMIN 16:55
PROVIDERS: ADMIT Physician Assistant; ATTEND Family Medicine
DX: I13.0 Hypertensive heart and chronic kidney disease with heart failure and stage 1 through stage 4 chronic kidney disease, or unspecified chronic kidney disease (principal); I50.33 Acute on chronic diastolic (congestive) heart failure; N12 Tubulo-interstitial nephritis, not specified as acute or chronic; K59.00 Constipation, unspecified; J43.9 Emphysema, unspecified; M17.0 Bilateral primary osteoarthritis of knee; K21.9 Gastro-esophageal reflux disease without esophagitis; N18.3 Chronic kidney disease, stage 3 (moderate); D53.9 Nutritional anemia, unspecified; D72.821 Monocytosis (symptomatic); I95.9 Hypotension, unspecified; E78.5 Hyperlipidemia, unspecified; G25.0 Essential tremor; E66.9 Obesity, unspecified; B96.20 Unspecified Escherichia coli [E. coli] as the cause of diseases classified elsewhere; N40.1 Benign prostatic hyperplasia with lower urinary tract symptoms; N39.498 Other specified urinary incontinence; R35.0 Frequency of micturition; Z99.81 Dependence on supplemental oxygen; Z85.828 Personal history of other malignant neoplasm of skin; Z86.718 Personal history of other venous thrombosis and embolism; Z90.49 Acquired absence of other specified parts of digestive tract; Z79.899 Other long term (current) drug therapy
CPT/HCPCS: 36415; 51702; 80048; 80053; 82553; 83605; 83880; 85025; 85651; 87040; 87077; 87186; 93005; 94640; A9270-GY; J0744; J1650; J1940; J2765; J7050

== ENCOUNTER 2018-03-07 08:15 | Emergency (ER) | payer MEDICARE, OTHER ==
--- NOTE | 2018-03-07 08:38 | EDM.PDOC ---
ED HPI GENERAL MEDICAL PROBLEM - General Stated Complaint: SYNCOPY Time Seen by Provider: 03/07/18 08:15 Source of Information: Reports: Patient, EMS, Significant Other History Limitations: Reports: No Limitations - History of Present Illness INITIAL COMMENTS - FREE TEXT/NARRATIVE: Patient presents via ambulance after a syncopal episode at the local diner. Pt is fully awake and alert; he tells me that he got light-headed and passed out when he got up from breakfast of egg, sausage, donut, half grapefruit and coffee. A friend eating with him tells me he noticed Joce was slumped over and not breathing. His vest was really tight and he was starting to turn blue so they moved him to the floor, loosened his vest, checked for pulse and began chest compressions. After about 30 compressions pt opened his eyes and began breathing. He denies chest pain or pain in neck, jaw, or arms. Neck Pain Score (Numeric/FACES): 3 - Related Data Allergies Allergy/AdvReac Type Severity Reaction Status Date / Time No Known Drug Allergies Allergy Unknown none Verified 03/07/18 08:43 Home Meds: Home Meds ALPRAZolam [Alprazolam] 0.5 mg PO DAILY PRN 01/20/16 [History] Albuterol [Ventolin HFA] 1 - 2 inhalation INH Q6HR PRN 01/20/16 [History] Albuterol/Ipratropium [DuoNeb 3.0-0.5 MG/3 ML] 1 vial INH QID PRN 01/20/16 [ History] Arformoterol Tartrate [Brovana] 2 ml INH BID 01/20/16 [History] Aspirin [Halfprin] 81 mg PO DAILY 01/20/16 [History] Benazepril HCl [Lotensin] 40 mg PO DAILY 01/20/16 [History] Budesonide [Pulmicort] 0.5 mg NEB BID 01/20/16 [History] Fluticasone Propionate 1 spray NASBOTH BID 01/20/16 [History] Gabapentin 100 mg PO DAILY 01/20/16 [History] Ibuprofen 200 mg PO Q4HR PRN 01/20/16 [History] L.acidoph,Paracasei, B.lactis [Probiotic] 1 cap PO DAILY 01/20/16 [History] Omeprazole 20 mg PO ACBREAKFAST 01/20/16 [History] Primidone 100 mg PO BID 01/20/16 [History] Saw [place] Fruit [Saw [place]] 1 cap PO Q48H 01/20/16 [History] Spironolactone [Aldactone] 25 mg PO BID 01/20/16 [History] Tamsulosin [Flomax] 0.4 mg PO DAILY 01/20/16 [History] Furosemide 20 mg PO DAILY@1200 10/17/17 [History] Vitamin B Complex 1 tab PO DAILY 10/17/17 [History] Docusate Sodium [Colace] 100 mg PO BID #60 cap 10/21/17 [Rx] Baclofen 10 mg PO BID 03/07/18 [History] Furosemide [Lasix] 40 mg PO DAILY 03/07/18 [History] Gabapentin [Neurontin] 200 mg PO DAILY@1200 03/07/18 [History] Gabapentin [Neurontin] 300 mg PO BEDTIME 03/07/18 [History] Glucosamine/D3/Boswellia Natalya [Osteo Bi-Flex Tablet] 1 tab PO DAILY 03/07/18 [ History] Magnesium Hydroxide [Milk of Magnesia] 30 ml PO DAILY PRN 03/07/18 [History] Melatonin 5 mg PO BEDTIME 03/07/18 [History] Polyethylene Glycol 3350 [MiraLAX] 17 gram PO DAILY PRN 03/07/18 [History] Past Medical History HEENT History: Reports: Hard of Hearing, Impaired Vision Cardiovascular History: Reports: Blood Clots/VTE/DVT, Heart Failure, High Cholesterol, Hypertension, SOB on Exertion, Other (See Below) Other Cardiovascular History: chronic diastolic heart failure Respiratory History: Reports: COPD, SOB, Other (See Below) Other Respiratory History: home O2 at night and with activity Gastrointestinal History: Reports: Cholelithiasis, Chronic Constipation Genitourinary History: Reports: BPH, Prostate Disorder, Urinary Incontinence Musculoskeletal History: Reports: Arthritis, Fracture, Other (See Below) Other Musculoskeletal History: ankle fx. Neurological History: Reports: Other (See Below) Other Neuro History: essential tremors Psychiatric History: Reports: Anxiety, Depression Hematologic History: Reports: Blood Transfusion(s) Oncologic (Cancer) History: Reports: Basal Cell Carcinoma, Other (See Below) Other Oncologic History: ear Dermatologic History: Reports: Melanoma - Infectious Disease History Infectious Disease History: Reports: Chicken Pox, Influenza, Measles, Mumps - Past Surgical History HEENT Surgical History: Reports: Naso-Sinus Surgery Cardiovascular Surgical History: Reports: None Respiratory Surgical History: Reports: None GI Surgical History: Reports: Appendectomy, Cholecystectomy, Colonoscopy, ERCP Neurological Surgical History: Reports: None Dermatological Surgical History: Reports: Skin Biopsy Social & Family History - Family History Family Medical History: Noncontributory - Caffeine Use Caffeine Use: Reports: Coffee, Soda ED ROS GENERAL - Review of Systems Review Of Systems: See Below Constitutional: Denies: Fever, Chills, Weakness HEENT: Denies: Throat Pain, Vision Change Respiratory: Denies: Shortness of Breath, Cough Cardiovascular: Reports: Lightheadedness, Syncope. Denies: Chest Pain Endocrine: Denies: Fatigue, High Glucose, Low Glucose GI/Abdominal: Denies: Abdominal Pain, Constipation, Diarrhea, Nausea, Vomiting : Reports: Dysuria (occasional). Denies: Flank Pain, Incontinence (didn't lose urine during syncopal episode) Musculoskeletal: Reports: Neck Pain (chronic posterior neck stiffness worse on right). Denies: Shoulder Pain, Arm Pain, Back Pain, Hand Pain, Leg Pain, Foot Pain Skin: Denies: Cyanosis, Jaundice, Mottled, Pallor, Diaphoresis, Bruising, Rash, Erythema, Wound Neurological: Reports: Syncope, Tremors (mild, chronic). Denies: Confusion, Dizziness, Headache, Numbness, Seizure, Trouble Speaking, Difficulty Walking, Weakness Psychiatric: Denies: Agitation, Anxiety, Confusion - Physical Exam Exam: See Below Exam Limited By: No Limitations General Appearance: Alert, WD/WN, No Apparent Distress Eye Exam: Bilateral Eye: EOMI, Normal Inspection, PERRL Ears: Normal External Exam, Hearing Grossly Normal Nose: Normal Inspection, No Blood Throat/Mouth: Normal Inspection, Normal Lips, Normal Gums, Normal Oropharynx, Normal Voice, No Airway Compromise Head Exam: Atraumatic, Normocephalic Neck: Normal Inspection, Supple, Non-Tender, Limited Range of Motion (but chronic and okay for age). No: Carotid Bruit, Tender Lateral, Tender Midline Respiratory/Chest: No Respiratory Distress, Lungs Clear, Normal Breath Sounds, No Accessory Muscle Use Cardiovascular: Normal Peripheral Pulses (Carotid are weak bilat but good radial and post tib), Regular Rate, Rhythm, No Gallop, No JVD, No Murmur GI/Abdominal: Normal Bowel Sounds, Soft, Non-Tender, No Organomegaly, No Distention, No Abnormal Bruit Neuro Exam (Abbreviated): Alert, Oriented (x4), CN II-XII Intact, Normal Cognition, No Motor/Sensory Deficits, Other (no facial droop or assymetry). No : Inattentive, Confused, Disoriented, Slow to Respond, Unresponsive, Memory Loss Remote Events, Memory Loss Recent Events Back Exam: Normal Inspection, Full Range of Motion. No: CVA Tenderness (L), CVA Tenderness (R) Extremities: Normal Inspection, Normal Range of Motion, Non-Tender, Normal Capillary Refill, Pedal Edema (bilat ankle edema 2+) Psychiatric: Normal Affect, Normal Mood Skin Exam: Warm, Dry, Intact, Normal Color, No Rash Course - Vital Signs Last Recorded V/S: Last Vital Signs Temp 97.3 F 03/07/18 08:38 Pulse 83 03/07/18 08:38 Resp 15 03/07/18 08:38 BP 94/49 L 03/07/18 08:38 Pulse Ox 99 03/07/18 08:38 Orthostatic Blood Pressure [ 97/45 Standing] Orthostatic Blood Pressure [ 95/47 Sitting] Orthostatic Blood Pressure [ 121/44 Supine] - Orders/Labs/Meds Orders: Active Orders 24 hr Category Date Time Status EKG Documentation Completion [RC] ASDIRECTED Care 03/07/18 08:39 Active Orthostatic Vital Signs [RC] ASDIRECTED Care 03/07/18 13:12 Active EKG 12 Lead [EK] Routine Ther 03/07/18 08:38 Ordered Labs: Laboratory Tests 03/07/18 03/07/18 03/07/18 Range/Units 08:35 08:35 09:19 WBC 8.79 (5.00-10.00) 10^3/uL RBC 3.73 L (4.50-6.00) 10^6/uL Hgb 12.4 L (13.0-17.0) g/dL Hct 36.3 L (40.0-52.0) % MCV 97.3 H D (82.0-92.0) fL MCH 33.2 H (27.0-31.0) pg MCHC 34.2 (32.0-36.0) g/dL RDW 12.5 (11.5-14.5) % Plt Count 195 (150-400) 10^3/uL MPV 10.0 (7.4-10.4) fL Immature Gran % (Auto) 0.3 (0.0-5.0) % Neut % (Auto) 58.8 (50.0-70.0) % Lymph % (Auto) 27.1 (20.0-40.0) % [place] % (Auto) 9.7 H (2.0-8.0) % Eos % (Auto) 3.6 H (1.0-3.0) % Baso % (Auto) 0.5 (0.0-1.0) % Immature Gran # (Auto) 0.03 (0.00-0.50) 10^3/uL Neut # (Auto) 5.17 (2.50-7.00) 10^3/uL Lymph # (Auto) 2.38 (1.00-4.00) 10^3/uL [place] # (Auto) 0.85 H (0.10-0.80) 10^3/uL Eos # (Auto) 0.32 H (0.10-0.30) 10^3/uL Baso # (Auto) 0.04 (0.00-0.10) 10^3/uL Sodium 141 (136-145) mmol/L Potassium 4.3 (3.3-5.3) mmol/L Chloride 101 (98-115) mmol/L Carbon Dioxide 28.0 D (21.0-32.0) mmol/L Anion Gap 16.3 H (5-15) mmol/L BUN 34 H (6-25) mg/dL Creatinine 1.57 H (0.51-1.17) mg/dL Est Cr Clr Drug Dosing 37.81 mL/min Estimated GFR (MDRD) 42 mL/min Glucose 103 H (75 - 99) mg/dL Calcium 9.1 (8.7-10.3) mg/dL Troponin I < 0.04 (0.00-0.070) ng/mL Specimen Type Urinblad Urine Color Yellow (YELLOW) Urine Appearance Clear (CLEAR) Urine pH 5.5 (5.0-9.0) Ur Specific [place] 1.015 (1.005-1.030) Urine Protein Negative (NEGATIVE) mg/dL Urine Glucose (UA) Negative (NEGATIVE) mg/dL Urine Ketones Negative (NEGATIVE) mg/dL Urine Occult Blood Negative (NEGATIVE) Urine Nitrite Negative (NEGATIVE) Urine Bilirubin Negative (NEGATIVE) Urine Urobilinogen 0.2 (0.2-1.0) E.U./dL Ur Leukocyte Esterase Negative (NEGATIVE) Urine RBC 0-5 (0-5) /HPF Urine WBC 0-5 (0-5) /HPF Ur Epithelial Cells Moderate H /LPF Urine Bacteria Occasional (NONE TO FEW) /HPF Hyaline Casts Many H (NEGATIVE) /LPF Urine Mucus Few H (NEGATIVE) /LPF 03/07/18 Range/Units 12:25 WBC (5.00-10.00) 10^3/uL RBC (4.50-6.00) 10^6/uL Hgb (13.0-17.0) g/dL Hct (40.0-52.0) % MCV (82.0-92.0) fL MCH (27.0-31.0) pg MCHC (32.0-36.0) g/dL RDW (11.5-14.5) % Plt Count (150-400) 10^3/uL MPV (7.4-10.4) fL Immature Gran % (Auto) (0.0-5.0) % Neut % (Auto) (50.0-70.0) % Lymph % (Auto) (20.0-40.0) % [place] % (Auto) (2.0-8.0) % Eos % (Auto) (1.0-3.0) % Baso % (Auto) (0.0-1.0) % Immature Gran # (Auto) (0.00-0.50) 10^3/uL Neut # (Auto) (2.50-7.00) 10^3/uL Lymph # (Auto) (1.00-4.00) 10^3/uL [place] # (Auto) (0.10-0.80) 10^3/uL Eos # (Auto) (0.10-0.30) 10^3/uL Baso # (Auto) (0.00-0.10) 10^3/uL Sodium (136-145) mmol/L Potassium (3.3-5.3) mmol/L Chloride (98-115) mmol/L Carbon Dioxide (21.0-32.0) mmol/L Anion Gap (5-15) mmol/L BUN (6-25) mg/dL Creatinine (0.51-1.17) mg/dL Est Cr Clr Drug Dosing mL/min Estimated GFR (MDRD) mL/min Glucose (75 - 99) mg/dL Calcium (8.7-10.3) mg/dL Troponin I < 0.04 (0.00-0.070) ng/mL Specimen Type Urine Color (YELLOW) Urine Appearance (CLEAR) Urine pH (5.0-9.0) Ur Specific [place] (1.005-1.030) Urine Protein (NEGATIVE) mg/dL Urine Glucose (UA) (NEGATIVE) mg/dL Urine Ketones (NEGATIVE) mg/dL Urine Occult Blood (NEGATIVE) Urine Nitrite (NEGATIVE) Urine Bilirubin (NEGATIVE) Urine Urobilinogen (0.2-1.0) E.U./dL Ur Leukocyte Esterase (NEGATIVE) Urine RBC (0-5) /HPF Urine WBC (0-5) /HPF Ur Epithelial Cells /LPF Urine Bacteria (NONE TO FEW) /HPF Hyaline Casts (NEGATIVE) /LPF Urine Mucus (NEGATIVE) /LPF Meds: Medications Discontinued Medications Generic Name Dose Route Start Last Admin Trade Name Freq PRN Reason Stop Dose Admin Sodium Chloride 1,000 mls @ 999 mls/hr 03/07/18 09:22 03/07/18 09:27 Normal Saline IV 03/07/18 10:22 999 mls/hr .BOLUS ONE Administration - Re-Assessments/Exams Free Text/Narrative Re-Assessment/Exam: 03/07/18 09:30 BUN and Creatinine are up a bit compared to his normal. The rest of the labs and initial troponin are okay. Will give some fluids and wait for UA as well as second trop. Patient doing well and feeling normal he says. 03/07/18 10:40 Discussed fluid/dehydration situation with Ronny Garcia NP who gave recommendations and advised followup tomorrow in clinic. 03/07/18 13:25 Second troponin is negative. Orthostatic pressures drop to 95 and 97 systolic with standing. I discussed this with patient and daughter regarding fall risk avoidance. Patient will decrease furosemide and benazapril for now until recheck with PCP tomorrow. Patient stable at discharge. Departure - Departure Time of Disposition: 13:25 Disposition: Home, Self-Care 01 Condition: Good Clinical Impression: Hypovolemia Episode of syncope Qualifiers: Encounter type: initial encounter - Discharge Information Instructions: Dehydration, Elderly Referrals: Damaris Mendiola BROWNING PROCESSOR [Primary Care Provider] - Sheryl Jackson PA-C [Physician [employer]ling Alley Mechanic] - 03/08/18 11:00 am Forms: ED Department Discharge Additional Instructions: 1. Drink 6-8 cups of water daily unless told otherwise by your PCP. 2. Cut back on your Furosemide to 20 mg twice a day instead of 40 mg in the morning. 3. Cut your Benazepril in half so you are taking 20 mg a day until you see your PCP again. 4. Follow up with your PCP tomorrow for recheck. - My Orders Last 24 Hours: My Active Orders 03/07/18 08:38 EKG 12 Lead [EK] Routine 03/07/18 08:39 EKG Documentation Completion [RC] ASDIRECTED 03/07/18 13:12 Orthostatic Vital Signs [RC] ASDIRECTED - Assessment/Plan Last 24 Hours: My Active Orders 03/07/18 08:38 EKG 12 Lead [EK] Routine 03/07/18 08:39 EKG Documentation Completion [RC] ASDIRECTED 03/07/18 13:12 Orthostatic Vital Signs [RC] ASDIRECTED
[2018-03-07 08:43] VITALS: BP 94/49
[2018-03-07 09:17] LABS: ANION GAP 16.3 mmol/L (5-15); CHLORIDE,CL 101 mmol/L (98-115); SODIUM,NA 141 mmol/L (136-145)
[2018-03-07] MEDS: Sodium Chloride 0.9% 1,000 ML IV ONE (09:27)
== END 2018-03-07 13:30 | disposition home or self-care (01) ==
LOC: KA.ED 08:15
DX: E86.1 Hypovolemia (principal); I11.0 Hypertensive heart disease with heart failure; I50.9 Heart failure, unspecified; F41.9 Anxiety disorder, unspecified; F32.9 Major depressive disorder, single episode, unspecified; Z79.899 Other long term (current) drug therapy; Z79.82 Long term (current) use of aspirin
CPT/HCPCS: 36415; 80048; 81001; 84484; 85025; 93005; 96360; 96361; 99284; 99285; J7030

== ENCOUNTER 2019-06-14 11:44 | Emergency (ER) | payer MEDICARE, OTHER ==
--- NOTE | 2019-06-14 12:08 | EDM.PDOC ---
ED HPI GENERAL MEDICAL PROBLEM - General Chief Complaint: Syncope Stated Complaint: DIZZINESS, LIGHTHEADED Time Seen by Provider: 06/14/19 12:08 History Limitations: Reports: No Limitations - History of Present Illness INITIAL COMMENTS - FREE TEXT/NARRATIVE: Experienced lightheaded, dizziness yesterday roughly 10:30 hour after going in [place] after doing chores, checking calves. Did not tell anyone of the event as it was short-lived denying any syncope, denying any fall. Has been compliant with all medications post T aVR roughly 10 days ago. This morning, roughly 1030 hrs., once again experienced lightheadedness dizziness with difficulty in maintaining balance. Again there was no syncope no fall. This was witnessed by family members and he hesitantly agreed to seek medical services. He was attempting to ambulate with assistance to the vehicle for transport to the emergency department when extreme weakness, pallor and dizziness occurred. Family member unable to get a blood pressure reading with a very low weak palpable pulse rate. Ambulance was summoned status at that time. He is experienced no CoVid 19 risk, exposure, nor symptoms. Onset Date: 06/13/19 Onset Time: 10:30 Duration: Hour(s): Location: Reports: Head, Chest Quality: Reports: Pressure Severity: Moderate Improves with: Reports: Rest Worsens with: Reports: Movement Context: Reports: Activity Associated Symptoms: Reports: No Other Symptoms - Related Data Allergies Allergy/AdvReac Type Severity Reaction Status Date / Time No Known Drug Allergies Allergy Unknown none Verified 06/14/19 12:18 Home Meds: Home Meds ALPRAZolam [Alprazolam] 0.5 mg PO DAILY PRN 01/20/16 [History] Albuterol [Ventolin HFA] 1 - 2 inhalation INH Q6HR PRN 01/20/16 [History] Albuterol/Ipratropium [DuoNeb 3.0-0.5 MG/3 ML] 1 vial INH QID PRN 01/20/16 [ History] Arformoterol Tartrate [Brovana] 2 ml INH BID 01/20/16 [History] Aspirin [Halfprin] 81 mg PO 0500 01/20/16 [History] Budesonide [Pulmicort] 0.5 mg NEB BID 01/20/16 [History] Fluticasone Propionate 1 spray NASBOTH BID 01/20/16 [History] Gabapentin 100 mg PO 0500 01/20/16 [History] Ibuprofen 200 mg PO Q4HR PRN 01/20/16 [History] L.acidoph,Paracasei, B.lactis [Probiotic] 1 cap PO DAILY 01/20/16 [History] Primidone 100 mg PO 0500,1100 01/20/16 [History] Saw [place] Fruit [Saw [place]] 1 cap PO DAILY 01/20/16 [History] Spironolactone [Aldactone] 25 mg PO 0500,1200 01/20/16 [History] Tamsulosin [Flomax] 0.4 mg PO BEDTIME 01/20/16 [History] Furosemide 20 mg PO 0500 10/17/17 [History] Vitamin B Complex 1 tab PO DAILY 10/17/17 [History] Baclofen 10 mg PO BID 03/07/18 [History] Gabapentin [Neurontin] 200 mg PO DAILY@1100 03/07/18 [History] Gabapentin [Neurontin] 300 mg PO BEDTIME 03/07/18 [History] Glucosamine/D3/[place]ia Natalya [Osteo Bi-Flex Tablet] 1 tab PO DAILY 03/07/18 [ History] Magnesium Hydroxide [Milk of Magnesia] 30 ml PO DAILY PRN 03/07/18 [History] Melatonin 5 mg PO BEDTIME 03/07/18 [History] polyethylene glycoL 3350 [MiraLAX] 17 gram PO DAILY 03/07/18 [History] Docusate Sodium [Colace] 100 mg PO DAILY 06/14/19 [History] Ticagrelor [Brilinta] 90 mg PO 0500,199906/14/19 [History] Past Medical History HEENT History: Reports: Hard of Hearing, Impaired Vision Cardiovascular History: Reports: Blood Clots/VTE/DVT, Heart Failure, Heart Valve Replacement, High Cholesterol, Hypertension, SOB on Exertion, Other (See Below) Other Cardiovascular History: chronic diastolic heart failure Respiratory History: Reports: COPD, SOB, Other (See Below) Other Respiratory History: home O2 at night and with activity Gastrointestinal History: Reports: Cholelithiasis, Chronic Constipation Genitourinary History: Reports: BPH, Prostate Disorder, Urinary Incontinence Musculoskeletal History: Reports: Arthritis, Fracture, Other (See Below) Other Musculoskeletal History: ankle fx. Neurological History: Reports: Other (See Below) Other Neuro History: essential tremors Psychiatric History: Reports: Anxiety, Depression Hematologic History: Reports: Blood Transfusion(s) Oncologic (Cancer) History: Reports: Basal Cell Carcinoma, Other (See Below) Other Oncologic History: ear Dermatologic History: Reports: Melanoma - Infectious Disease History Infectious Disease History: Reports: Chicken Pox, Influenza, Measles, Mumps - Past Surgical History HEENT Surgical History: Reports: Naso-Sinus Surgery Cardiovascular Surgical History: Reports: None, Valve Replacement (TVAR) Respiratory Surgical History: Reports: None GI Surgical History: Reports: Appendectomy, Cholecystectomy, Colonoscopy, ERCP Neurological Surgical History: Reports: None Dermatological Surgical History: Reports: Skin Biopsy Social & Family History - Family History Family Medical History: Noncontributory - Caffeine Use Caffeine Use: Reports: Coffee, Soda ED ROS GENERAL - Review of Systems Review Of Systems: See Below Constitutional: Reports: No Symptoms HEENT: Reports: No Symptoms Respiratory: Reports: Shortness of Breath (Chronic, claims farmers lung.) Cardiovascular: Reports: Palpitations Endocrine: Reports: No Symptoms GI/Abdominal: Reports: No Symptoms : Reports: No Symptoms Musculoskeletal: Reports: No Symptoms Skin: Reports: No Symptoms Neurological: Reports: No Symptoms Psychiatric: Reports: No Symptoms Hematologic/Lymphatic: Reports: No Symptoms Immunologic: Reports: No Symptoms ED EXAM, GENERAL - Physical Exam Exam: See Below General Appearance: Alert, WD/WN, No Apparent Distress Ears: Normal External Exam, Hearing Grossly Normal (The use of hearing aid) Nose: Normal Inspection, Normal Mucosa Throat/Mouth: Normal Inspection, Normal Lips Head: Atraumatic, Normocephalic Neck: Normal Inspection, Supple, Non-Tender, Full Range of Motion Respiratory/Chest: No Respiratory Distress, Lungs Clear, Chest Non-Tender Cardiovascular: Normal Peripheral Pulses, No Gallop, No JVD, No Rub, Bradycardia GI/Abdominal: Normal Bowel Sounds, Soft, Non-Tender (Male) Exam: Deferred Rectal (Males) Exam: Deferred Back Exam: Full Range of Motion Extremities: Pedal Edema. No: Yoel's Sign, Leg Pain Neurological: Alert, Oriented, CN II-XII Intact, Normal Cognition Psychiatric: Normal Affect, Normal Mood Skin Exam: Warm, Dry, Intact, Normal Color Lymphatic: No Adenopathy EKG INTERPRETATION EKG Date: 06/14/19 Time: 11:58 Rate (Beats/Min): 33 QRS: Wide Comparison: Change From Previous EKG Course - Vital Signs Last Recorded V/S: Last Vital Signs Temp 36.3 C 06/14/19 11:50 Pulse 57 L 06/14/19 13:00 Resp 17 06/14/19 13:00 BP 131/52 L 06/14/19 13:00 Pulse Ox 96 06/14/19 13:00 - Orders/Labs/Meds Orders: Active Orders 24 hr Category Date Time Status EKG Documentation Completion [RC] ASDIRECTED Care 06/14/19 11:50 Active EKG 12 Lead [EK] Routine Ther 06/14/19 12:41 Ordered Labs: Laboratory Tests 06/14/19 06/14/19 Range/Units 12:05 12:05 WBC 9.17 (5.00-10.00) 10^3/uL RBC 3.75 L (4.50-6.00) 10^6/uL Hgb 12.1 L (13.0-17.0) g/dL Hct 36.1 L (40.0-52.0) % MCV 96.3 H (82.0-92.0) fL MCH 32.3 H (27.0-31.0) pg MCHC 33.5 (32.0-36.0) g/dL RDW 12.6 (11.5-14.5) % Plt Count 162 (150-400) 10^3/uL MPV 9.8 (7.4-10.4) fL Immature Gran % (Auto) 0.2 (0.0-5.0) % Neut % (Auto) 67.9 (50.0-70.0) % Lymph % (Auto) 20.4 (20.0-40.0) % [place] % (Auto) 8.8 H (2.0-8.0) % Eos % (Auto) 2.2 (1.0-3.0) % Baso % (Auto) 0.5 (0.0-1.0) % Immature Gran # (Auto) 0.02 (0.00-0.50) 10^3/uL Neut # (Auto) 6.22 (2.50-7.00) 10^3/uL Lymph # (Auto) 1.87 (1.00-4.00) 10^3/uL [place] # (Auto) 0.81 H (0.10-0.80) 10^3/uL Eos # (Auto) 0.20 (0.10-0.30) 10^3/uL Baso # (Auto) 0.05 (0.00-0.10) 10^3/uL Sodium 142 (136-145) mmol/L Potassium 4.7 (3.3-5.3) mmol/L Chloride 103 (98-115) mmol/L Carbon Dioxide 29.4 (21.0-32.0) mmol/L Anion Gap 14.3 (5-15) mmol/L BUN 28 H (6-25) mg/dL Creatinine 1.08 (0.51-1.17) mg/dL Est Cr Clr Drug Dosing 55.42 mL/min Estimated GFR (MDRD) > 60 mL/min Glucose 104 H (75 - 99) mg/dL Calcium 8.9 (8.7-10.3) mg/dL Total Bilirubin 0.2 (0.2-1.0) mg/dL AST 20 (15-37) U/L ALT 23 (12-78) U/L Alkaline Phosphatase 47 (46-116) IU/L Troponin I 0.06 (0.00-0.070) ng/mL B-Natriuretic Peptide 280 H (0-100) pg/mL Total Protein 6.7 (6.4-8.2) g/dL Albumin 3.11 (3.00-4.80) g/dL Departure - Departure Time of Disposition: 13:42 Disposition: DC/Tfer to Acute Hospital 02 Condition: Fair Clinical Impression: Bradycardia, Navassa' lung disease, Elevated brain natriuretic peptide (BNP) level - Discharge Information *PRESCRIPTION DRUG MONITORING PROGRAM REVIEWED*: Not Applicable *COPY OF PRESCRIPTION DRUG MONITORING REPORT IN PATIENT DORI: Not Applicable Referrals: Damaris Mendiola NP [Primary Care Provider] - Forms: ED Department Discharge, Interfacility Transfer EMTALA Additional Instructions: Transfer to [facility] for admission. Pacemaker workup to follow. Sepsis Event Note - Focused Exam Vital Signs: Vital Signs Temp Pulse Resp BP Pulse Ox 06/14/19 13:00 57 L 17 131/52 L 96 06/14/19 12:50 64 17 134/53 L 95 06/14/19 12:30 52 L 15 143/51 H 95 06/14/19 12:00 62 19 119/47 L 94 L 06/14/19 11:50 36.3 C 33 L 18 119/47 L 98 Date Exam was Performed: 06/14/19 Time Exam was Performed: 13:42 - Problem List & Annotations (1) Bradycardia SNOMED Code(s): 35534540 Code(s): R00.1 - BRADYCARDIA, UNSPECIFIED Status: Acute Current Visit: Yes (2) Navassa' lung disease SNOMED Code(s): 18351371 Code(s): J67.0 - VENEGAS'S LUNG Status: Acute Current Visit: Yes (3) Elevated brain natriuretic peptide (BNP) level SNOMED Code(s): 923699944, 983012620 Code(s): R79.89 - OTHER SPECIFIED ABNORMAL FINDINGS OF BLOOD CHEMISTRY Status: Acute Current Visit: Yes - My Orders Last 24 Hours: My Active Orders 06/14/19 11:50 EKG Documentation Completion [RC] ASDIRECTED 06/14/19 12:41 EKG 12 Lead [EK] Routine - Assessment/Plan Last 24 Hours: My Active Orders 06/14/19 11:50 EKG Documentation Completion [RC] ASDIRECTED 06/14/19 12:41 EKG 12 Lead [EK] Routine Plan: Will be transferred to [facility] for pacemaker evaluation admission.
--- NOTE | 2019-06-14 12:40 | CR ---
[id number] RAD/RAD Chest PA or AP 1V EXAM: FRONTAL CHEST INDICATION: Dizziness and bradycardia. COMPARISON: January 20, 2016. DISCUSSION: The lungs are mildly hypoinflated with central vascular crowding and mild bibasilar atelectasis. No acute infiltrates are identified. Normal heart size. Mild chronic tortuosity of the thoracic aorta. IMPRESSION: 1. Low lung volumes. Otherwise negative. Ulices Hawley MD 06/14/19 [id number] Thank you for allowing us to participate in the care of your patient.
[2019-06-14 12:42] LABS: ANION GAP 14.3 mmol/L (5-15); CHLORIDE,CL 103 mmol/L (98-115); SODIUM,NA 142 mmol/L (136-145)
[2019-06-14 13:14] VITALS: PULSE 57
[2019-06-14 16:20] VITALS: BP 146/57
== END 2019-06-14 14:20 ==
LOC: KA.ED 11:44
DX: J67.0 Farmer's lung (principal); R00.1 Bradycardia, unspecified; R79.89 Other specified abnormal findings of blood chemistry; I11.0 Hypertensive heart disease with heart failure; I50.32 Chronic diastolic (congestive) heart failure; J44.9 Chronic obstructive pulmonary disease, unspecified; M19.90 Unspecified osteoarthritis, unspecified site; F41.9 Anxiety disorder, unspecified; F32.9 Major depressive disorder, single episode, unspecified; Z79.82 Long term (current) use of aspirin; Z79.899 Other long term (current) drug therapy
CPT/HCPCS: 71045; 80053; 83880; 84484; 85025; 93005; 99284; 99285-25